=== PATIENT | female | born 1935 | race Caucasian/White ===

== ENCOUNTER 2017-12-21 19:14 | Inpatient (IN) | payer OTHER ==
[~2017-12-21] VITALS: Ht 165.1 cm; Wt 65.8 kg
--- NOTE | 2017-12-21 19:34 | ED GENERAL ADULT ---
History of Present Illness General Chief Complaint: Dyspnea (COPD, CHF, Other) Stated Complaint: BIBA CHILLS, ABNORMAL BREATHING Source: patient, family, EMS Exam Limitations: no limitations Vital Signs & Intake/Output Vital Signs & Intake/Output Vital Signs Date Time Temp Pulse Resp B/P B/P Pulse O2 O2 Flow FiO2 Mean Ox Delivery Rate 12/21 2105 103.0 129 18 113/53 95 Nasal 2.0L Cannula 12/22 2055 103.0 130 18 113/54 96 Nasal 2.0L Cannula 12/21 2017 102.0 12/21 1921 103.0 112 18 136/97 95 Room Air 12/21 1913 Room Air Triage Note: pt coming from home. sudden onset of chills, weakness, decreased appettite. pt tachy 120s, temp 103. hx of peptic ulcers. pt AOX4 Triage Nurses Notes Reviewed? yes HPI: Patient was feeling fine all day and then shortly after dinner she had a sudden onset of feeling chills and shaking. Patient then began to feel weak. Patient denies any coughing. There is no dysuria. Patient had a normal bowel movement this morning. There is no nausea or vomiting. Patient denies any headache or neck pain. Upon arrival to the emergency department patient found to be febrile to 103. Patient does not take any medications. Patient states the only medication her doctor has wanted her to take is an antacid which he prescribed for her last year however she did not feel that she needed it so does not take that. The daughter noticed that last week the patient was passing we'll look like very soft and squishy kidney stones. Patient does have a history of kidney stones but states that she has not been having pain. Past History Travel History Traveled to [place] past 21 day No Medical History Any Pertinent Medical History? see below for history Gastrointestinal: GERD, PEPTIC ULCER Renal: KIDNEY STONES Surgical History Surgical History: non-contributory Psychosocial History What is your primary language Malagasy Tobacco Use: Quit <30 days ago ETOH Use: denies use Illicit Drug Use: denies illicit drug use Family History Hx Contributory? No Review of Systems Review of Systems Constitutional: Reports: see HPI, chills, weakness. EENTM: Reports: no symptoms. Respiratory: Reports: no symptoms. Cardiovascular: Reports: no symptoms. GI: Reports: no symptoms. Genitourinary: Reports: no symptoms. Musculoskeletal: Reports: no symptoms. Skin: Reports: no symptoms. Neurological/Psychological: Reports: no symptoms. Hematologic/Endocrine: Reports: no symptoms. Immunologic/Allergic: Reports: no symptoms. All Other Systems: Reviewed and Negative Physical Exam Physical Exam General Appearance: well developed/nourished, alert, awake, anxious, mild distress Head: atraumatic, normal appearance Eyes: Bilateral: PERRL, EOMI. Ears, Nose, Throat: normal pharynx, normal ENT inspection, hearing grossly normal Neck: normal inspection, supple, full range of motion Respiratory: normal breath sounds, chest non-tender, no respiratory distress, lungs clear Cardiovascular: normal peripheral pulses, tachycardia, NO MURMUR Gastrointestinal: normal bowel sounds, no organomegaly Back: normal inspection, normal range of motion, NO CVA TENDERNESS Extremities: normal inspection, normal capillary refill, normal range of motion, no edema Neurologic/Psych: no motor/sensory deficits, awake, alert, oriented x 3, normal gait, normal mood/affect Skin: intact, normal color, warm/dry Lymphatic: no anterior cervical katie Core Measures ACS in differential dx? No CVA/TIA Diagnosis: No Sepsis Present: Yes Sepsis Focused Exam Completed? No ED Sepsis Exam Date of Focused Sepsis Exam: 12/21/17 Time of Focused Sepsis Exam: 2102 Sepsis Cardiac Exam: Tachycardia Sepsis Resp Exam: CTA Sepsis Cap Refill Exam: <2 Sec Sepsis Peripheral Pulse Exam: Normal Sepsis Peripheral Pulse Location: Radial Sepsis Skin Color Exam: Normal for Ethnicity Skin Temp/Moisture Exam: Hot/Dry Progress Differential Diagnoses I considered the following diagnoses in my evaluation of the patient: [SEPSIS, AMI] Plan of Care: Orders Procedure Date/time Status LACTIC ACID 12/21 2229 Active Admit to inpatient 12/21 2099 Active XRY-PORTABLE CHEST XRAY 12/21 1929 Active Telemetry/Lay Out Technician 12/21 1929 Active CULTURE,URINE 12/21 1929 Active BLOOD CULTURE 12/21 1929 Active URINALYSIS 12/21 1929 Complete TROPONIN LEVEL 12/21 1929 Complete LACTIC ACID 12/21 1929 Complete COMPREHENSIVE METABOLIC PANEL 12/21 1929 Complete CBC WITHOUT DIFFERENTIAL 12/21 1929 Complete EKG 12/21 1925 Active Current Medications Sig/Yuri Start time Last Medication Dose Stop Time Status Admin Metoprolol Tartrate 5 MG ONCE ONE 12/21 2114 UNVr (Lopressor) 12/22 2115 Aspirin 325 MG ONCE ONE 12/21 2099 UNVr (Aspirin) 12/21 2100 Ibuprofen 400 MG ONCE ONE 12/21 2099 UNVr (Motrin) 12/21 2100 Ondansetron HCl 4 MG ONCE ONE 12/21 2014 UNVr 12/21 (Zofran) 12/21 Sodium Chloride 1,000 ML BOLUS ONE 12/21 2014 UNVr 12/21 (Normal Saline 0.9%) 12/21 Acetaminophen 1,000 MG ONCE ONE 12/21 1929 UNVr 12/21 (Ofirmev) 12/21 N/A 1 UNIT (No Carrier) Ceftazidime 1,000 MG ONCE ONE 12/21 1929 UNVr 12/21 (Fortaz) 12/21 Sodium Chloride 2,177.25 ML ONCE ONE 12/21 1929 UNir 12/21 (Normal Saline 0.9%) 12/21 Vancomycin HCl 1,000 MG ONCE ONE 12/21 1929 UNir 12/21 Sodium Chloride 250 ML 12/21 (Normal Saline 0.9%) Laboratory Tests 12/21/17 2000: Urine Color BLDY H, Urine Clarity TURBD H, Urine pH 6.0, Ur Specific [place] 1.025, Urine Protein >=300 H, Urine Ketones TRACE H, Urine Nitrite POS H, Urine Bilirubin NEG@ICTO, Urine Urobilinogen 2.0 H, Ur Leukocyte Esterase LARGE H, Ur Microscopic SEDIMENT EXAMINED, Urine RBC PACKD H, Urine WBC PACKD H, Ur Epithelial Cells FEW, Urine Bacteria MANY H, Micro UA Comment MORE INFO: H, Urine Hemoglobin LARGE H, Urine Glucose NEG 12/21/17 1950: Anion Gap 8, Estimated GFR 60, BUN/Creatinine Ratio 16.7, Glucose 122 H, Lactic Acid 1.3, Calcium 9.1, Total Bilirubin 0.6, AST 40 H, ALT 22, Alkaline Phosphatase 160 H, Troponin I 0.24 *H, Total Protein 6.6, Albumin 2.7 L, Globulin 3.9, Albumin/Globulin Ratio 0.7 L, CBC w Diff NO MAN DIFF REQ, RBC 3.28 L, MCV 80.2 L, MCH 26.7 L, MCHC 33.3, RDW 15.1 H, MPV 9.9, Gran % 84.6 H, Lymphocytes % 6.2 L, Monocytes % 8.7, Eosinophils % 0, Basophils % 0.5, Absolute Granulocytes 12.9 H, Absolute Lymphocytes 0.9 L, Absolute Monocytes 1.3 H, Absolute Eosinophils 0, Absolute Basophils 0.1 Microbiology 12/21 2036 BLOOD: Blood Culture - RECD 12/22 1999 URINE ROUT: Urine Culture - RECD 12/22 1999 BLOOD: Blood Culture - RECD Diagnostic Imaging: Viewed by Me: Radiology Read. Discussed w/RAD: Radiology Read. Pre-Hospital EKG: S TACH WITH LBBB Initial ED EKG: LBBB, S TACH NO OLD TO COMPARE Rhythm Strip: sinus tachycardia Comments: While in the ER patient patient became very nauseous and began to vomit. Discussed with Dr. Elizabeth from cardiology, patient will receive 5 mg of IV Lopressor for the continued tachycardia and the positive troponin. Departure Departure Disposition: STILL A PATIENT Condition: Guarded Clinical Impression Primary Impression: Sepsis Secondary Impressions: Elevated troponin, UTI (urinary tract infection) Referrals: Daniel Haddad MD (PCP/Family) Departure Forms: Customer Survey General Discharge Information Admission Note Spoke With: Ras Hurd MD Documentation of Exam: Documentation of any treatments & extenuating circumstances including Concerns Regarding Discharge (functional status, medication knowledge or non-compliance, living conditions, etc.) that warrant an admission rather than observation: [ICU ADMISSION, CARDIOLOGY CONSULT, IV ABX, AGGRESSIVE HYDRATION] Critical Care Note Critical Care Note Critical Care Time: mins: (90 MIN)
[2017-12-21 20:14] LABS: ABSOLUTE BASOPHIL COUNT 0.1 /CUMM (0.0-0.2); ABSOLUTE EOSINOPHIL COUNT 0 /CUMM (0.0-0.7); ABSOLUTE GRANULOCYTE CT 12.9 /CUMM (1.4-6.5); ABSOLUTE LYMPH COUNT 0.9 /CUMM (1.2-3.4); ABSOLUTE MONOCYTE COUNT 1.3 /CUMM (0.10-0.60); BASOPHIL % 0.5 % (0.0-2.0); EOSINOPHIL % 0 % (0-5); HEMATOCRIT 26.3 % (37-47); MEAN CORPUSCULAR HGB 26.7 PG (27.0-31.0); MEAN CORPUSCULAR HGB CONC 33.3 G/DL (33.0-37.0); MEAN CORPUSCULAR VOLUME 80.2 FL (81.0-99.0); MEAN PLATELET VOLUME 9.9 FL (7.4-10.4); PLATELET COUNT 512 /CUMM (130-400); RBC DISTRIBUTION WIDTH 15.1 % (11.5-14.5); RED BLOOD CELL CT 3.28 /CUMM (4.20-5.40); WHITE BLOOD CELL COUNT 15.2 /CUMM (4.8-10.8)
[2017-12-21 20:15] LABS: GRANULOCYTE % 84.6 % (42.2-75.2)
--- NOTE | 2017-12-21 21:14 | History & Physical ---
[place] [facility] 12/21/172113: General Information and HPI MD Statement: I have seen and personally examined DIANE GARCIA and documented this H&P. The patient is a 82 year old F who presented with a patient stated chief complaint of chills. Source of Information: patient, family Exam Limitations: no limitations History of Present Illness: 82-year-old very pleasant lady with no significant past medical hx other than a remote history of cholelithiasis status post cholecystectomy, and ovarian cyst( ?), presented to [place] ED for evaluation of sudden onset of chills and shivering that started this evening. She denies any recent URI, cough/sob, headache/neck rigidity, abdominal pain,nausea/vomiting, dysuria or diarrhea. No sick contacts or recent travel. She does however states that in the past few days, her urine has looked slightly different. Family members who were at bedside also state that the patient has not been herself for the past few days, with noticeable fatigue. She endorses a vague remote history of "kidney stones" and UTIs. [facility] records indicate an E coli UTI in 2013. Other associated symptoms include an unintentional 50 pound weight loss within 1 year which is also accompanied by decreased appetite. She denies having had any colonoscopy in her lifetime. Review of system is negative for any chest pain, palpitation, shortness of breath, dizziness,orthopnea, lower extremity edema, focal neurological deficits, or muscle aches. At baseline, she reports that she is independent with activities of daily living and other than antacids for heartburn, she does not have any medical condition or take any medication. In 2017, she had an echocardiogram (she does not know why it was ordered) with the results showing a normal EF with no wall motion abnormalities or significant valvular pathologies. Allergies/Medications Allergies: Coded Allergies: No Known Allergies (12/21/17) Inpatient Sepsis Exam Sepsis Cardiac Exam: Tachycardia Sepsis Resp Exam: CTA Sepsis Cap Refill Exam: <2 Sec Sepsis Peripheral Pulse Exam: Normal Sepsis Peripheral Pulse Location: Radial Sepsis Skin Color Exam: Normal for Ethnicity Skin Temp/Moisture Exam: Hot/Dry Past History Travel History Traveled to [place] past 21 day No Medical History Gastrointestinal: GERD, PEPTIC ULCER Renal: KIDNEY STONES Surgical History Surgical History: non-contributory Past Family/Social History Psychosocial History ETOH Use: denies use Illicit Drug Use: denies illicit drug use Review of Systems Review of Systems Constitutional: Reports: see HPI. EENTM: Reports: no symptoms. Cardiovascular: Reports: no symptoms. Respiratory: Reports: no symptoms. GI: Reports: no symptoms. Genitourinary: Reports: discharge. Musculoskeletal: Reports: no symptoms. Skin: Reports: no symptoms. Neurological/Psychological: Reports: no symptoms. Hematologic/Endocrine: Reports: no symptoms. Immunologic/Allergic: Reports: no symptoms. All Other Systems: Reviewed and Negative Exam & Diagnostic Data Last 24 Hrs of Vital Signs/I&O Vital Signs Date Time Temp Pulse Resp B/P B/P Pulse O2 O2 Flow FiO2 Mean Ox Delivery Rate 12/21 2318 Nasal 2.0L Cannula 12/21 2304 100.0 90 15 80/46 97 Nasal 2.0L Cannula 12/21 2252 99.9 89 15 81/49 99 Nasal 2.0L Cannula 12/217 89 18 80/403 96 Nasal 2.0L Cannula / 2202 94 18 80/41 97 Nasal 2.0L Cannula 12/21 2200 90 18 83/46 97 Nasal 2.0L Cannula / 2155 78/42 / 2149 91 18 80/40 97 Nasal 2.0L Cannula / 2148 101.4 92 77/40 94 Nasal 2.0L Cannula / 2140 89/49 /02 2136 86/40 / 2135 95 15 88/53 94 Nasal 2.0L Cannula 12/21 2122 108 112/56 /2105 103.0 129 18 113/53 95 Nasal 2.0L Cannula 12/22 2055 103.0 130 18 113/54 96 Nasal 2.0L Cannula 12/21 2029 103.0 /2017 102.0 / 1922 103.0 112 18 136/97 95 Room Air 12/21 1914 Room Air Physical Exam General Appearance Alert, Oriented X3, Cooperative, No Acute Distress Skin No Significant Lesion, chow angiomas noted on back area Skin Temp/Moisture Exam: Hot/Dry Sepsis Skin Exam (color): Normal for Ethnicity HEENT Atraumatic, PERRLA, slightly dry oral mucosa Neck Supple, No JVD Lymphatic Cervical nl Cardiovascular Regular Rate, Normal S1, Normal S2 Lungs Clear to Auscultation, Normal Air Movement Abdomen Normal Bowel Sounds, Soft, No Tenderness Neurological Normal Speech, Strength at 5/5 X4 Ext, Sensation Intact Extremities No Clubbing, No Cyanosis, No Edema, Normal Pulses Vascular Pulses Symmetrical Sepsis Peripheral Pulse Location: Radial Sepsis Peripheral Pulse Exam: Normal Sepsis Cap Refill Exam: <2 Sec Last 24 Hrs of Labs/Ovidio: Laboratory Tests 12/21/17 2258: Lactic Acid 2.8 H 12/21/171999: Urine Color BLDY H, Urine Clarity TURBD H, Urine pH 6.0, Ur Specific [place] 1.025, Urine Protein >=300 H, Urine Ketones TRACE H, Urine Nitrite POS H, Urine Bilirubin NEG@ICTO, Urine Urobilinogen 2.0 H, Ur Leukocyte Esterase LARGE H, Ur Microscopic SEDIMENT EXAMINED, Urine RBC PACKD H, Urine WBC PACKD H, Ur Epithelial Cells FEW, Urine Bacteria MANY H, Micro UA Comment MORE INFO: H, Urine Hemoglobin LARGE H, Urine Glucose NEG 12/21/171999: Urine Osmolality 457, Ur Random Creatinine 99.4, Ur Random Sodium 54, Ur Random Potassium 70.5, Fraction Sodium Excret 0.4 12/21/17 1950: Anion Gap 8, Estimated GFR 60, BUN/Creatinine Ratio 16.7, Glucose 122 H, Lactic Acid 1.3, Calcium 9.1, Iron 43, TIBC 193 L, Ferritin 250.0, Total Bilirubin 0.6 , AST 40 H, ALT 22, Alkaline Phosphatase 160 H, Troponin I 0.24 *H, Total Protein 6.6, Albumin 2.7 L, Globulin 3.9, Albumin/Globulin Ratio 0.7 L, CBC w Diff NO MAN DIFF REQ, RBC 3.28 L, MCV 80.2 L, MCH 26.7 L, MCHC 33.3, RDW 15.1 H, MPV 9.9, Gran % 84.6 H, Lymphocytes % 6.2 L, Monocytes % 8.7, Eosinophils % 0, Basophils % 0.5, Absolute Granulocytes 12.9 H, Absolute Lymphocytes 0.9 L , Absolute Monocytes 1.3 H, Absolute Eosinophils 0, Absolute Basophils 0.1 Microbiology 12/21 2036 BLOOD: Blood Culture - RECD 12/22 1999 URINE ROUT: Urine Culture - RECD 12/22 1999 BLOOD: Blood Culture - RECD Diagnostic Data EKG Results RBB CXR Results XAM TYPE: RAD - XRY-PORTABLE CHEST XRAY EXAMINATION: XR PORTABLE CHEST CLINICAL INFORMATION: Fever. COMPARISON: CT chest 02/10/2017 TECHNIQUE: Portable frontal view of the chest was obtained. FINDINGS: The lungs are well-expanded and clear of acute pneumonic process. Heart size and pulmonary vascularity is normal. No gross bony abnormality seen. IMPRESSION: Unremarkable chest exam. Assessment/Plan Assessment: 82-year-old gentleman with no known significant past medical history presents with 1 day onset of chills and malaise with a clinical picture consistent with sepsis of urological origin. Patient also has positive troponins without any chest pain or ischemic EKG changes. Impression * Sepsis of urological origin as evident by a temperature of 103, heart rate of 129, leukocytosis and a positive urinalysis suggestive of infection. Even though patient's blood pressure drop precipitously with systolic readings of 80s, this is not severe sepsis but rather iatrogenic induced hypotension due to the metoprolol 5mg IV administered. The normal lactate levels, normal creatinine and urine output provides additional clinical evidence of the absence of severe sepsis, * Elevated troponins. This is Type 2 [place] most likely secondary to supply demand mismatch in the context of sepsis and anemia. Patient does not present with any chest pain or dynamic ischemic EKG changes and therefore ACS is very unlikely. The elevated troponins albeit mild, in an 82 year old lady is suggestive of ischemia from underlying coronary artery disease which can be risk stratified with with a stress test if needed. * Hypotension. Iatrogenic 2/2 to Metoprolol IV * Hyperkalemia * Hyponatremia. * Anemia. Unable to determine whether it's acute as last H&H was in 2010. The MCV of 81 is indicative of microcytic anemia. Given the age of 82 and reported significant weight loss, CRC is of high probability. * Thrombocytosis. Possible secodary to sepsis. Plan Admit to ICU for close monitoring Aggressive IV fluids s/p ceftaz and vanc. No recent urologic instrumentation to suggest continued coverage need for MRSA. Will start Ceftriaxone 1 g daily for UTI to cover for the most common gram negative rods pathogen Will trend troponins and EKG 2 Echocardiogram tomorrow am Follow-up on urine and blood cultures Obtain urine lytes to assess the hyponatremia. Obtain iron studies CBC tomorrow morning to trend leukocytosis DVT:Enoxaparin Code status: DNRI/DNI As Ranked By This Provider Problem List: 1. Sepsis 2. UTI (urinary tract infection) 3. Elevated troponin Core Measures/Misc (03/08) Acute Coronary Syndrome ACS Diagnosis: No Congestive Heart Failure Congestive Heart Failure Diagnosis No Cerebrovascular Accident CVA/TIA Diagnosis: No VTE (View Protocol) VTE Risk Factors Acute Medical Illness No Mechanical VTE Prophylaxis d/t N/A MechProphylax Ordered No VTE Pharm Prophylaxis d/t NA PharmProphylax ordered Sepsis (View protocol) Sepsis Present: Yes If YES complete Sepsis Event Note If YES complete Sepsis Event Note Ras Hurd MD 12/21/17 2305: Core Measures/Misc (03/08) Sepsis (View protocol) If YES complete Sepsis Event Note If YES complete Sepsis Event Note Attending MD Review Statement Attending Statement Attending MD Statement: examined this patient, discuss w/resident/PA/OBJECTIVE C DEVELOPER, agreed w/resident/PA/OBJECTIVE C DEVELOPER, reviewed EMR data (avail) Attending Assessment/Plan: 82F PMH GERD, nephrolithiasis presenting with a several hour history of fever, chills, and fatigue. Was fine up until this evening, then symptoms started abruptly. Denies headache, stiff neck, sore throat, photophobia, chest pain, palpitations, SOB, cough, abdominal pain, diarrhea, dysuria. Febrile 103 on arrival, sinus tach 150's, normal BP on arrival. Labs show WBC 15, normal renal function, microcytic anemia, urinalysis consistent with UTI. Given Metoprolol 5mg IV in ED for tachycardia which dropped BP to 84/50, HR improved, patient remains asymptomatic aside from fatigue. Troponin elevated to 0.24, EKG sinus tach without ST/T changes. BP 78/48 with HR 75 and sinus at 4am, patient alert, talking, only complains of a sticking sensation in the back of her throat, but otherwise does not appear septic clinically, troponin now 4.65, EKG shows LBBB (unchanged), cardiology consulted, no heparin drip, will continue to trend troponin. Blood cultures positive for gram negative rods. 1. Severe sepsis secondary to UTI 2. Sinus tachycardia 3. Gram negative bacteremia 4. Type 2 myocardial infarction Plan - Admit to ICU - Continue IV hydration, if remains hypotensive, will start peripheral Levophed at very low dose. If change in clinical status, or worsening hemodynamics, will place central line and start Levophed. - Serial EKG and troponin - Echocardiogram - Continue Ceftazidime - Urine and blood cultures - Cardiology consult - IV hydration - No further b-blockers - DVT PPx
--- NOTE | 2017-12-21 21:22 | RADIOLOGY REPORT ---
EXAMINATION: XR PORTABLE CHEST CLINICAL INFORMATION: Fever. COMPARISON: CT chest 02/10/2017 TECHNIQUE: Portable frontal view of the chest was obtained. FINDINGS: The lungs are well-expanded and clear of acute pneumonic process. Heart size and pulmonary vascularity is normal. No gross bony abnormality seen. IMPRESSION: Unremarkable chest exam.
[2017-12-22 00:19] LABS: ABSOLUTE BASOPHIL COUNT 0 /CUMM (0.0-0.2); ABSOLUTE EOSINOPHIL COUNT 0 /CUMM (0.0-0.7); ABSOLUTE GRANULOCYTE CT 12.2 /CUMM (1.4-6.5); ABSOLUTE LYMPH COUNT 0.5 /CUMM (1.2-3.4); ABSOLUTE MONOCYTE COUNT 0.2 /CUMM (0.10-0.60); BASOPHIL % 0 % (0.0-2.0); EOSINOPHIL % 0 % (0-5); GRANULOCYTE % 94.7 % (42.2-75.2); HEMATOCRIT 22.5 % (37-47); MEAN CORPUSCULAR HGB 26.4 PG (27.0-31.0); MEAN CORPUSCULAR HGB CONC 32.9 G/DL (33.0-37.0); MEAN CORPUSCULAR VOLUME 80.2 FL (81.0-99.0); MEAN PLATELET VOLUME 9.7 FL (7.4-10.4); PLATELET COUNT 385 /CUMM (130-400); RBC DISTRIBUTION WIDTH 14.5 % (11.5-14.5); WHITE BLOOD CELL COUNT 12.9 /CUMM (4.8-10.8)
[2017-12-22 01:00] VITALS: BP 70/40
--- NOTE | 2017-12-22 01:53 | Admission Certification ---
Admission Certification Certification Statement - As attending physician, I certify that at the time of - admission, based on clinical presentation, severity of - symptoms, need for further diagnostic testing and - therapeutic interventions, and risk of adverse outcomes - without in-hospital treatment, in my clinical assessment, - this patient requires an acute hospital stay for a minimum - of two nights or longer. I have also considered psychsocial - factors such as support system, advanced age, financial - issues, cognitive issues, and failed out-patient treatments, - past re-admission history, safety of patient, and lack of - compliance as applicable. Specific rationale supporting this admission is: Sepsis secondary to UTI with positive troponin
--- NOTE | 2017-12-22 04:18 | Event Note ---
Event Note Event Note: It was noted that the troponin value went up to 4.76 from 0.16. EKG revealed incomplete left bundle branch block, and nonspecific ST changes in anterior leads. She was completely asymptomatic at the time. Blood pressure continued to be on the lower side systolic 70s, map around 60s. Given her sepsis, this change was most likely attributed to type II ME. Discussed with the food editor, if heparin needs to be initiated; and deferred the decision for later since it appeared to be type II ME in her case. Discussed with the attending physician consolidation accountant, and in view of her low blood pressure and decreased urine output; she was given normal saline 1 L bolus. Blood pressure improved to 87/50. Heart rate remained in the range of 80s-90s. It was also reported that she grew gram-negative rods in blood, and antibiotics have been changed to ceftazidime. She was alert and oriented, and appeared completely normal at this time. Lungs clear. Urine output in the range of 10- 40 mL an hour. Plan was to start pressors peripherally, if needed. Once she is more clinically stable, she should get CAT scan abdomen and pelvis with contrast to rule out any intra-abdominal source of infection.
--- NOTE | 2017-12-22 07:38 | Cons- CRCU ---
Jeff King 12/22/17 0715: General Information and HPI Consulting Request Date of Consult: 12/22/17 Requested By: Dr. Hurd Reason for Consult: Pt. acutely ill Source of Information: patient, old records Exam Limitations: no limitations History of Present Illness: 82y year old F with history of kidney stones, presented to ED c/o sudden onset of chills that started the evening of 12/21. Patient states she was feeling normal that day until the evening, when she started shivering. Pt and her daughter have noted her urine has looked different over the last few days, with the appeareance of soft stones. She denies any SOB/cough, headache, abdominal pain, dysuria, recent URI, headache/neck rigidity, N/V/D. Pt denies recent travel or sick contacts. Pt recalls two episodes of kidney stones in the past, unclear on the date, described as difficulty initiating urination, with rapid voiding after the passing of "something" the size of a rice grain, but notes she experienced no pain during those episodes. Family members have also noted increased fatigue and unintentional 50 pounds weight loss with decreased appetite during the past year. Pt refers it started last january as decreased appetite, then transitioned into weakness and fatigue. As per pt, she had workup done with no real answer to her symptoms, but denies EGD/Colonoscopy during this period. She has been unable to gain weight since then. At baseline, pt reports that she is independent with ADLs and only reports taking antacids for heartburn. Of relevance, medical records show a E. coli UTI in 2013, and in in 2017, she had an echocardiogram with the results showing a normal EF with no wall motion abnormalities or significant valvular pathologies. Allergies/Medications Allergies: Coded Allergies: No Known Allergies (12/21/17) Review of Systems Review of Systems Constitutional: Reports: unexplained weight loss. EENTM: Reports: no symptoms. Cardiovascular: Reports: no symptoms. Respiratory: Reports: no symptoms. GI: Reports: no symptoms. Genitourinary: Reports: no symptoms. Musculoskeletal: Reports: no symptoms. Skin: Reports: no symptoms. Past History Travel History Traveled to [place] past 21 day No Medical History Gastrointestinal: GERD, PEPTIC ULCER Renal: KIDNEY STONES Surgical History Surgical History: cholecystectomy, partial oophorectomy Psychosocial History Where Do You Live? Home Smoking Status: Unknown If Ever Smoked ETOH Use: denies use Illicit Drug Use: denies illicit drug use Exam & Diagnostic Data Last 24 Hrs of Vital Signs/I&O Laboratory Tests 12/22 12/22 12/22 0840 0630 0220 Chemistry Lactic Acid (0.7 - 2.1 mmol/L) 1.5 2.4 H Troponin I Pending Coagulation PT Pending INR Pending Hematology CBC w Diff MAN DIFF ORDERED WBC (4.8 - 10.8 /CUMM) Pending RBC (4.20 - 5.40 /CUMM) Pending Hgb (12.0 - 16.0 G/DL) Pending Hct (37 - 47 %) Pending MCV (81.0 - 99.0 FL) Pending MCH (27.0 - 31.0 PG) Pending MCHC (33.0 - 37.0 G/DL) Pending RDW (11.5 - 14.5 %) Pending Plt Count (130 - 400 /CUMM) Pending MPV (7.4 - 10.4 FL) Pending Gran % (42.2 - 75.2 %) Pending Lymphocytes % (20.5 - 51.1 %) Pending Monocytes % (1.7 - 9.3 %) Pending Eosinophils % (0 - 5 %) Pending Basophils % (0.0 - 2.0 %) Pending Absolute Granulocytes (1.4 - 6.5 /CUMM) Pending Segmented Neutrophils (42.2 - 75.2 %) Pending Absolute Lymphocytes (1.2 - 3.4 /CUMM) Pending Absolute Monocytes (0.10 - 0.60 /CUMM) Pending Absolute Eosinophils (0.0 - 0.7 /CUMM) Pending Absolute Basophils (0.0 - 0.2 /CUMM) Pending 12/22 12/22 12/21 0220 0005 2258 Chemistry Sodium (137 - 145 mmol/L) 138 Potassium (3.5 - 5.1 mmol/L) 3.9 Chloride (98 - 107 mmol/L) 109 H Carbon Dioxide (22 - 30 mmol/L) 18 L Anion Gap (5 - 16) 11 BUN (7 - 17 mg/dL) 15 Creatinine (0.5 - 1.0 mg/dL) 1.2 H Estimated GFR (>60 ml/min) 43 L BUN/Creatinine Ratio (7 - 25 %) 12.5 Lactic Acid (0.7 - 2.1 mmol/L) 2.8 H Troponin I (< 0.11 ng/ml) 4.76 *H Hematology CBC w Diff MAN DIFF ORDERED WBC (4.8 - 10.8 /CUMM) 12.9 H RBC (4.20 - 5.40 /CUMM) 2.80 L Hgb (12.0 - 16.0 G/DL) 7.4 *L Hct (37 - 47 %) 22.5 L MCV (81.0 - 99.0 FL) 80.2 L MCH (27.0 - 31.0 PG) 26.4 L MCHC (33.0 - 37.0 G/DL) 32.9 L RDW (11.5 - 14.5 %) 14.5 Plt Count (130 - 400 /CUMM) 385 MPV (7.4 - 10.4 FL) 9.7 Gran % (42.2 - 75.2 %) 94.7 H Lymphocytes % (20.5 - 51.1 %) 4.0 L Monocytes % (1.7 - 9.3 %) 1.3 L Eosinophils % (0 - 5 %) 0 Basophils % (0.0 - 2.0 %) 0 Absolute Granulocytes (1.4 - 6.5 /CUMM) 12.2 H Segmented Neutrophils (42.2 - 75.2 %) 89 H Band Neutrophils (0.0 - 5.0 %) 9 H Absolute Lymphocytes (1.2 - 3.4 /CUMM) 0.5 L Lymphocytes (20.5 - 51.1 %) 1 L Monocytes (1.7 - 9.3 %) 1 L Absolute Monocytes (0.10 - 0.60 /CUMM) 0.2 Absolute Eosinophils (0.0 - 0.7 /CUMM) 0 Absolute Basophils (0.0 - 0.2 /CUMM) 0 Platelet Estimate (ADEQUATE) ADEQUATE Polychromasia 1+ Hypochromic-Microcytic 1+ Poikilocytosis 1+ Anisocytosis 1+ Microcytic Cells 1+ Ovalocytes 1+ Other Body Source Fld Total RBCs Counted (%) 100 12/21 Urines Urine Color (YEL,AMB,STR) BLDY H Urine Clarity (CLEAR) TURBD H Urine pH (5.0 - 8.0) 6.0 Ur Specific [place] (1.001 - 1.035) 1.025 Urine Protein (NEG,<30 MG/DL) >=300 H Urine Ketones (NEG) TRACE H Urine Nitrite (NEG) POS H Urine Bilirubin (NEG) NEG@ICTO Urine Urobilinogen (0.1 - 1.0 EU/dl) 2.0 H Ur Leukocyte Esterase (NEG) LARGE H Ur Microscopic SEDIMENT EXAMINED Urine RBC (0 - 5 /HPF) PACKD H Urine WBC (0 - 2 /HPF) PACKD H Ur Epithelial Cells (NONE,FEW) FEW Urine Bacteria (NEG/NONE) MANY H Micro UA Comment MORE INFO: H Urine Hemoglobin (NEG) LARGE H Urine Osmolality (300 - 1000 MOSM/KG) 457 Ur Random Creatinine (mg/dL) 99.4 Ur Random Sodium (30 - 90 mmol/L) 54 Ur Random Potassium (mmol/L) 70.5 Fraction Sodium Excret (<1% %) 0.4 Urine Glucose (N MG/DL) NEG 12/21 1949 Chemistry Sodium (137 - 145 mmol/L) 132 L Potassium (3.5 - 5.1 mmol/L) 5.4 H Chloride (98 - 107 mmol/L) 98 Carbon Dioxide (22 - 30 mmol/L) 26 Anion Gap (5 - 16) 8 BUN (7 - 17 mg/dL) 15 Creatinine (0.5 - 1.0 mg/dL) 0.9 Estimated GFR (>60 ml/min) 60 BUN/Creatinine Ratio (7 - 25 %) 16.7 Glucose (65 - 99 mg/dL) 122 H Lactic Acid (0.7 - 2.1 mmol/L) 1.3 Calcium (8.4 - 10.2 mg/dL) 9.1 Iron (37 - 170 ug/dL) 43 TIBC (265 - 497 ug/dL) 193 L Ferritin (11.1 - 264 ng/mL) 250.0 Total Bilirubin (0.2 - 1.3 mg/dL) 0.6 AST (14 - 36 U/L) 40 H ALT (9 - 52 U/L) 22 Alkaline Phosphatase (<127 U/L) 160 H Troponin I (< 0.11 ng/ml) 0.24 *H Total Protein (6.3 - 8.2 g/dL) 6.6 Albumin (3.5 - 5.0 g/dL) 2.7 L Globulin (1.9 - 4.2 gm/dL) 3.9 Albumin/Globulin Ratio (1.1 - 2.2 %) 0.7 L Hematology CBC w Diff NO MAN DIFF REQ WBC (4.8 - 10.8 /CUMM) 15.2 H RBC (4.20 - 5.40 /CUMM) 3.28 L Hgb (12.0 - 16.0 G/DL) 8.7 L Hct (37 - 47 %) 26.3 L MCV (81.0 - 99.0 FL) 80.2 L MCH (27.0 - 31.0 PG) 26.7 L MCHC (33.0 - 37.0 G/DL) 33.3 RDW (11.5 - 14.5 %) 15.1 H Plt Count (130 - 400 /CUMM) 512 H MPV (7.4 - 10.4 FL) 9.9 Gran % (42.2 - 75.2 %) 84.6 H Lymphocytes % (20.5 - 51.1 %) 6.2 L Monocytes % (1.7 - 9.3 %) 8.7 Eosinophils % (0 - 5 %) 0 Basophils % (0.0 - 2.0 %) 0.5 Absolute Granulocytes (1.4 - 6.5 /CUMM) 12.9 H Absolute Lymphocytes (1.2 - 3.4 /CUMM) 0.9 L Absolute Monocytes (0.10 - 0.60 /CUMM) 1.3 H Absolute Eosinophils (0.0 - 0.7 /CUMM) 0 Absolute Basophils (0.0 - 0.2 /CUMM) 0.1 Microbiology Date/Time Procedure - Status Source Growth 12/22 114 Surveillance Culture - RECD UPPER RESP 12/22 114 Surveillance Culture - RECD GI 12/21 2036 Blood Culture - RECD BLOOD 12/22 1999 Urine Culture - RECD URINE ROUT 12/22 1999 Blood Culture - RES BLOOD GRAM NEGATIVE RODS Vital Signs Date Time Temp Pulse Resp B/P B/P Pulse O2 O2 Flow FiO2 Mean Ox Delivery Rate 12/22 0400 96 Nasal 2.0L Cannula 12/22 0200 100 Nasal 2.0L Cannula 12/22 010 99.3 12/22 0100 99.3 12/22 0100 97.7 78 24 70/40 100 Nasal 2.0L Cannula 12/22 0012 100.0 90 16 77/47 97 Nasal 2.0L Cannula 12/21 2318 Nasal 2.0L Cannula 12/21 2304 100.0 90 15 80/46 97 Nasal 2.0L Cannula / 2252 99.9 89 15 81/49 99 Nasal 2.0L Cannula 12/21 2207 89 18 80/403 96 Nasal 2.0L Cannula 12/21 2202 94 18 80/41 97 Nasal 2.0L Cannula / 2200 90 18 83/46 97 Nasal 2.0L Cannula 12/21 2155 78/42 / 2149 91 18 80/40 97 Nasal 2.0L Cannula 12/21 2148 101.4 92 77/40 94 Nasal 2.0L Cannula 12/21 2140 89/49 /02 2136 86/40 / 2135 95 15 88/53 94 Nasal 2.0L Cannula 12/21 2122 108 112/56 / 2106 103.0 129 18 113/53 95 Nasal 2.0L Cannula 12/216 103.0 130 18 113/54 96 Nasal 2.0L Cannula 12/21 2030 103.0 / 2018 102.0 07/02 1922 103.0 112 18 136/97 95 Room Air 12/21 1914 Room Air Intake & Output 12/22 1600 07/03 0800 07 0000 Intake Total 7859 Output Total 178 Balance 7681 Intake, IV 7839 Intake, Oral 20 Output, Urine 178 Patient 142 lb 160 lb Weight Weight Bed scale Estimated Measurement Method Physical Exam General Appearance: no apparent distress, alert, awake, thin Head: atraumatic, normal appearance Eyes: Bilateral: normal appearance, pale conjunctivae. Neck: normal inspection, supple Respiratory: normal breath sounds, chest non-tender, no respiratory distress, lungs clear Cardiovascular: regular rate/rhythm Gastrointestinal: normal bowel sounds, soft, non-tender Extremities: normal inspection Skin: normal color, warm/dry Last 48 Hrs of Labs/Ovidio: Laboratory Tests 12/22/17 0840: Troponin I Pending, PT Pending, INR Pending, CBC w Diff Pending, WBC Pending, RBC Pending, Hgb Pending, Hct Pending, MCV Pending, MCH Pending, MCHC Pending, RDW Pending, Plt Count Pending, MPV Pending 12/22/17 0630: Lactic Acid 1.5 12/22/17 0220: Lactic Acid 2.4 H 12/22/17 0220: Anion Gap 11, Estimated GFR 43 L, BUN/Creatinine Ratio 12.5, Troponin I 4.76 *H 12/22/17 0005: CBC w Diff MAN DIFF ORDERED, RBC 2.80 L, MCV 80.2 L, MCH 26.4 L, MCHC 32.9 L , RDW 14.5, MPV 9.7, Gran % 94.7 H, Lymphocytes % 4.0 L, Monocytes % 1.3 L, Eosinophils % 0, Basophils % 0, Absolute Granulocytes 12.2 H, Segmented Neutrophils 89 H, Band Neutrophils 9 H, Absolute Lymphocytes 0.5 L, Lymphocytes 1 L, Monocytes 1 L, Absolute Monocytes 0.2, Absolute Eosinophils 0 , Absolute Basophils 0, Platelet Estimate ADEQUATE, Polychromasia 1+, Hypochromic-Microcytic 1+, Poikilocytosis 1+, Anisocytosis 1+, Microcytic Cells 1+, Ovalocytes 1+, Fld Total RBCs Counted 100 12/21/17 2258: Lactic Acid 2.8 H 12/21/17 2000: Urine Color BLDY H, Urine Clarity TURBD H, Urine pH 6.0, Ur Specific [place] 1.025, Urine Protein >=300 H, Urine Ketones TRACE H, Urine Nitrite POS H, Urine Bilirubin NEG@ICTO, Urine Urobilinogen 2.0 H, Ur Leukocyte Esterase LARGE H, Ur Microscopic SEDIMENT EXAMINED, Urine RBC PACKD H, Urine WBC PACKD H, Ur Epithelial Cells FEW, Urine Bacteria MANY H, Micro UA Comment MORE INFO: H, Urine Hemoglobin LARGE H, Urine Glucose NEG 12/21/171999: Urine Osmolality 457, Ur Random Creatinine 99.4, Ur Random Sodium 54, Ur Random Potassium 70.5, Fraction Sodium Excret 0.4 12/21/17 1950: Anion Gap 8, Estimated GFR 60, BUN/Creatinine Ratio 16.7, Glucose 122 H, Lactic Acid 1.3, Calcium 9.1, Iron 43, TIBC 193 L, Ferritin 250.0, Total Bilirubin 0.6 , AST 40 H, ALT 22, Alkaline Phosphatase 160 H, Troponin I 0.24 *H, Total Protein 6.6, Albumin 2.7 L, Globulin 3.9, Albumin/Globulin Ratio 0.7 L, CBC w Diff NO MAN DIFF REQ, RBC 3.28 L, MCV 80.2 L, MCH 26.7 L, MCHC 33.3, RDW 15.1 H, MPV 9.9, Gran % 84.6 H, Lymphocytes % 6.2 L, Monocytes % 8.7, Eosinophils % 0, Basophils % 0.5, Absolute Granulocytes 12.9 H, Absolute Lymphocytes 0.9 L , Absolute Monocytes 1.3 H, Absolute Eosinophils 0, Absolute Basophils 0.1 Diagnostic Data Other Results EXAMINATION: CT ABDOMEN AND PELVIS WITH CONTRAST CLINICAL INFORMATION: Sepsis of urological origin. Evaluate for intra-abdominal abscess, perinephric abscess. COMPARISON: None TECHNIQUE: Multidetector volumetric imaging was performed of the abdomen and pelvis following IV administration of 95 mL of Optiray 320 intravenous contrast. Sagittal and coronal reformatted images were obtained on the technologist's workstation. DLP: 291 mGy-cm FINDINGS: LUNG BASES: Small bilateral pleural effusions produce compressive atelectasis of lower lobes. LIVER, GALLBLADDER, AND BILIARY TREE: There is hepatomegaly. Liver is diffusely heterogeneous, likely from hepatic venous congestion. No focal liver lesions are seen. No hepatic abscess. Gallbladder is surgically absent. No intrahepatic or extrahepatic bile duct dilatation. PANCREAS: The pancreatic tail is anterosuperiorly displaced by the left renal mass. No focal pancreatic lesion. SPLEEN: Unremarkable. ADRENAL GLANDS: Unremarkable. KIDNEYS AND URETERS: The right kidney is normal. A large, heterogeneously enhancing, centrally necrotic mass of the [id number] pole of the left kidney, consistent with renal cell carcinoma, measures up to 10.5 cm transverse, 11.6 cm AP and 13.5 cm craniocaudal. The tumor, which is confined to Gerota's fascia, exerts mass effect upon the renal sinus fat. No tumor invasion into the renal vein or into surrounding structures. BLADDER: The bladder is decompressed by a Echevarria catheter. GASTROINTESTINAL TRACT: Stomach is underdistended. Bowel loops are normal in caliber. Pancolonic diverticulosis. However, no focal bowel wall thickening or focal fat stranding to suggest acute diverticulitis. Small amount of ascitic fluid is present within the abdomen. No pneumoperitoneum. ABDOMINAL WALL: Mild edema in subcutaneous tissues of the abdominal wall, flanks, back and thighs. No focal fluid collection. LYMPH NODES: No pathologic sized lymph nodes within the abdomen or pelvis. VASCULAR: Mild atherosclerosis of the abdominal aorta without aneurysm. PELVIC VISCERA: 2 cm calcified uterine leiomyoma. Small amount of free fluid is present in the pelvis. No abscess. OSSEOUS STRUCTURES: Bones appear diffusely osteopenic. L4-L5 facet osteoarthritis and degenerative disc disease with 0.8 cm (approximately 25%) of anterolisthesis of L4 on L5. No aggressive osseous lesions. IMPRESSION: 1. Large, heterogeneously enhancing mass of the [id number] pole the left kidney measuring up to 13.5 cm is consistent with renal cell carcinoma. No evidence of lymphadenopathy or distant metastasis. 2. Anasarca. The heterogeneous hepatic attenuation is likely due to hepatic venous congestion. 3. No evidence of abdominal abscess. 4. Pancolonic diverticulosis without diverticulitis. Assessment/Plan CRCU Impression/Plan: 82 year old F with PMH kidney stones that presented to the ED with complains of sudden onset chills, malaise and fatigue of 1 day duration. Patient is talkative , cooperative, does not look in acute distress. She is hypotensive, with a MAP of 53, blood cultures 2/2 growing gram negative rods likely from urinary origin. Problems: #Urosepsis #Elevated Troponin #L RCC Assesment and Plan VS- BP: 80/40, HR: 71, RR:20, T: 99.3, I/O: 7509/178 Respiratory Patient is breathing comfortably, sat 97% with 2L on nasal cannula. Lungs are CTA B/L, no wheezes, crepitus or rhonchi heard. CXR shows no infiltrates or consolidation, making a PNA unlikely. Infection Pt presentation suggestive of infection. Tmax of 103, WBC 15.2 on admit ->12.9 - >31.6 latest; positive urianalysis indicates an infection of urinary origin. Patient with BP of 80/40, though unclear if it's sepsis-induced hypotension as BP on admit 136/97, dropping to 88/53 after metoprolol was given. However, 6L of fluids have failed to raise the SBP above 90, making the likelihood of sepsis- induced hypotension stronger. Lactic acid trend 1.5 ->2.4, indicating increasing inflammatory burden. Blood cultures 2/2 grown gram negative rods. -Coverage switched from ceftriaxone to ceftazidime IV 1g BID -f/u on cultures -Mantain MAP>65 Cardiac Pt. with elevated troponin on arrival. Trend: 0.24->4.76->3.81. Sharp increase/ decrease in the setting of sepsis might indicate a type II non-ST segment elevation MS supply-demand mismatch. Patient has not complained of chest pain. EKG findings suggestive of LBBB, but in the absence of a baseline EKG, underlying CAD cannot be ruled out. -Cardio consulted -Echo pending Hematological Patient with Hb of 8.7->7.4->7.9 and MCV of 81.3 on the latest am lab. Borderline low MCV and low Hb in this 82 year old F with 50 pound unintentional weight loss is concerning for malignancy. CT abdomen showed a large, centrally necrotic mass of the mid-to lower pole of the left kidney, consistent with renal cell carcinoma, measures up to 10.5 cm transverse, 11.6 cm AP and 13.5 cm craniocaudal. No tumor invasion into the renal vein or into surrounding structures. -Mantain Hb > 8 -Check coag profile Metabolic Hyponatremic on admit 132->138 latest am lab Hyperkalemic on admit 5.4 -> 3.9 latest am lab -Will continue to monitor Alimentary Regular diet Neuro Patient is cooperative and talkative, AAOx3. DNR/DNI Problem List: 1. Sepsis 2. UTI (urinary tract infection) 3. Elevated troponin 4. Renal cell carcinoma Consult Acknowledgment - Thank you for your consult request. Chandrakant Eden MD 12/22/17 0738: Assessment/Plan CRCU Other Findings/Comments: Chandrakant Turner M.D. have examined this patient, reviewed available EMR data, personally reviewed images, discussed with resident/PA/PARKING LOT SPOTTER, discussed management plan with housestaff and nursing staff, discussed managment plan all of healthcare providers, discussed management plan with patient and/or family, agreed with resident/PA/PARKING LOT SPOTTER. The past history and parts of the chart have been autopopulated. Impression 82 year old woman * severe sepsis uti as source * troponinemia likely type 2 MS Plan -2 liters bolus -maintain map of >65 -if necessary will initiate pressors - manual BP now in 90's, mentating well, urinary output increased, will monitor -f/u all cultures -abdominal CT pending -ECHO -cardiology consultation -check coags -repeat hgb, maintain hgb >8 DVT prophylaxis at all times TTS 45 min Consult Acknowledgment - Thank you for your consult request.
[2017-12-22 08:00] VITALS: BP 82/48
[2017-12-22 09:01] LABS: ABSOLUTE BASOPHIL COUNT 0.1 /CUMM (0.0-0.2); ABSOLUTE EOSINOPHIL COUNT 0 /CUMM (0.0-0.7); ABSOLUTE GRANULOCYTE CT 28.5 /CUMM (1.4-6.5); ABSOLUTE LYMPH COUNT 1.9 /CUMM (1.2-3.4); BASOPHIL % 0.5 % (0.0-2.0); EOSINOPHIL % 0 % (0-5); GRANULOCYTE % 90.3 % (42.2-75.2); HEMATOCRIT 24.4 % (37-47); MEAN CORPUSCULAR HGB 26.5 PG (27.0-31.0); MEAN CORPUSCULAR HGB CONC 32.6 G/DL (33.0-37.0); MEAN CORPUSCULAR VOLUME 81.3 FL (81.0-99.0); PLATELET COUNT 354 /CUMM (130-400); RBC DISTRIBUTION WIDTH 15.6 % (11.5-14.5)
[2017-12-22 09:31] LABS: WHITE BLOOD CELL COUNT 31.6 /CUMM (4.8-10.8)
[2017-12-22 09:43] LABS: PT 16.3 SEC (9.4-12.5)
--- NOTE | 2017-12-22 10:32 | Cons- Cardiology ---
General Information and HPI Consulting Request Date of Consult: 12/22/17 Requested By: Ras Hurd MD Reason for Consult: Elevated troponin isoenzyme Source of Information: patient, old records Exam Limitations: no limitations History of Present Illness: The patient is an 82-year-old woman with no significant past medical history. She presented to our hospital with symptoms of severe chills, fever and fatigue. On arrival, she was noted to be septic, as well as hypotensive and tachycardic. Initial and subsequent troponin isoenzymes were positive. The patient states having increased symptoms of chills and fevers, initiating several hours prior to arrival. She states she has been otherwise asymptomatic, and describes performance of approximately 4 metastases of physical activity on a regular basis at home without symptoms (climbing stairs, performing housework) . On arrival, she was found to be febrile with a temperature of 103. From a hemodynamic standpoint, she was hypotensive with blood pressure of 80s, and tachycardic with heart rates of 150s. The patient had other evidence of sepsis including leukocytosis, and an elevated lactic acid level. The first troponin isoenzyme was positive at 0.24, and peaked at 4.76 with a second level. A third level was lower at 3.81. Blood cultures were positive for gram-negative rods. The patient otherwise denied symptoms of chest discomfort during her presentation with the exception of mild epigastric discomfort which was alleviated by belching. Allergies/Medications Allergies: Coded Allergies: No Known Allergies (12/21/17) Current Medications: Current Medications Sig/Yuri Start time Last Medication Dose Route Stop Time Status Admin Acetaminophen 500 MG Q6P PRN 12/21 2300 AC PO Acetaminophen 0 .STK-MED ONE 12/21 1958 DC IV Acetaminophen 1,000 MG ONCE ONE 12/21 1930 DC 12/21 N/A 1 UNIT IV 12/21 1944 2002 Aspirin 325 MG ONCE ONE 12/22 0400 CAN PO 12/22 0401 Aspirin 325 MG ONCE ONE 12/21 2100 DC 12/21 PO 12/21 Aspirin 0 .STK-MED ONE 12/21 2057 DC PO Ceftazidime 1,000 MG BID 12/22 0430 AC 12/22 IV 12/23 0429 0507 Ceftazidime 0 .STK-MED ONE 12/21 2009 DC .ROUTE Ceftazidime 0 .STK-MED ONE 12/22 2007 DC .ROUTE Ceftazidime 1,000 MG ONCE ONE 12/21 1930 DC 12/21 IV 12/21 1931 2043 Ceftriaxone Sodium 1,000 MG DAILY 12/22 0400 DC IV Enoxaparin Sodium 40 MG DAILY 12/22 0900 DC SC Enoxaparin Sodium 40 MG DAILY 12/22 0900 AC 07 SC 0916 Heparin Sodium 25,000 UNIT Q24H 12/22 0400 DC (Porcine) IV Sodium Chloride 500 ML Ibuprofen 400 MG ONCE ONE 12/21 2100 DC 12/21 PO 12/21 210 2030 Ibuprofen 0 .STK-MED ONE 12/21 2057 DC PO Metoprolol Tartrate 0 .STK-MED ONE 12/22 2115 DC IV Metoprolol Tartrate 5 MG ONCE ONE 12/21 211 DC 12/21 IV 12/21 Ondansetron HCl 4 MG ONCE ONE 12/21 2014 DC 12/21 IV 12/21 Ondansetron HCl 0 .STK-MED ONE 12/21 2012 DC .ROUTE Pantoprazole Sodium 40 MG DAILY 12/22 0430 AC 12/22 IV 0430 Promethazine HCl 0 .STK-MED ONE 12/21 2009 DC .ROUTE Sodium Chloride 1,000 ML BOLUS ONE 12/22 0715 DC 12/22 IV 12/22 0814 0744 Sodium Chloride 1,000 ML BOLUS ONE 12/22 0715 DC 12/22 IV 12/22 0814 0941 Sodium Chloride 1,000 ML BOLUS ONE 12/22 0430 DC 12/22 IV 12/22 0529 0415 Sodium Chloride 1,000 ML Q10H 12/21 2300 AC 12/22 IV 0100 Sodium Chloride 1,000 ML BOLUS ONE 12/21 2200 DC 12/21 IV 12/21 2259 2217 Sodium Chloride 1,000 ML BOLUS ONE 12/21 2145 DC 12/21 IV 12/21 2244 2151 Sodium Chloride 1,000 ML BOLUS ONE 12/21 2014 DC / IV 12/21 2114 2044 Sodium Chloride 2,177.25 ML ONCE ONE 12/21 1930 DC 07 IV 12/21 1931 2004 Trimethobenzamide HCl 200 MG ONCE ONE 12/22 0445 DC IM 12/22 0446 Vancomycin HCl 0 .STK-MED ONE 12/21 2008 DC .ROUTE Vancomycin HCl 1,000 MG ONCE ONE 12/21 1930 DC 12/21 Sodium Chloride 250 ML IV 12/21 Review of Systems Review of Systems: The review of systems is negative for chest pains, palpitations nor lightheadedness. The remainder of the 14 point review of systems is noncontributory with the exception of above. Past History Travel History Traveled to [place] past 21 day No Medical History Gastrointestinal: GERD, PEPTIC ULCER Renal: KIDNEY STONES Surgical History Surgical History: cholecystectomy, partial oophorectomy Psychosocial History Where Do You Live? Home Smoking Status: Unknown If Ever Smoked ETOH Use: denies use Illicit Drug Use: denies illicit drug use Exam & Diagnostic Data Vital Signs and I&O Vital Signs Date Time Temp Pulse Resp B/P B/P Pulse O2 O2 Flow FiO2 Mean Ox Delivery Rate 12/22 0400 96 Nasal 2.0L Cannula 12/22 0200 100 Nasal 2.0L Cannula 12/22 0100 99.3 12/22 0100 99.3 12/22 0100 97.7 78 24 70/40 100 Nasal 2.0L Cannula 12/22 0012 100.0 90 16 77/47 97 Nasal 2.0L Cannula 12/21 2318 Nasal 2.0L Cannula 12/21 2304 100.0 90 15 80/46 97 Nasal 2.0L Cannula 12/21 2252 99.9 89 15 81/49 99 Nasal 2.0L Cannula /7 89 18 80/403 96 Nasal 2.0L Cannula /2 94 18 80/41 97 Nasal 2.0L Cannula /0 90 18 83/46 97 Nasal 2.0L Cannula 12/215 78/42 /2148 91 18 80/40 97 Nasal 2.0L Cannula 12/22 2147 101.4 92 77/40 94 Nasal 2.0L Cannula 12/210 89/49 /2135 86/40 /2134 95 15 88/53 94 Nasal 2.0L Cannula 12/21 2121 108 112/56 /2105 103.0 129 18 113/53 95 Nasal 2.0L Cannula 12/22 2055 103.0 130 18 113/54 96 Nasal 2.0L Cannula 12/21 2029 103.0 12/21 2017 102.0 07/02 1922 103.0 112 18 136/97 95 Room Air 12/21 1914 Room Air Intake & Output 12/22 0812/22 0000 12/21 1600 12/21 0812/21 0000 Intake Total 7859 Output Total 178 Balance 7681 Intake, IV 7839 Intake, Oral 20 Output, Urine 178 Patient 142 lb 160 lb Weight Weight Bed scale Estimated Measurement Method Physical Exam: General: Nontoxic, no apparent distress. HEENT: Sclera and conjunctiva within normal limits, without xanthelasmas. Neck: Carotids 2+ without bruits. Respiratory: Scattered rhonchi, air movement is good, without accessory respiratory muscle use. Heart: Regular rate and rhythm, 2 out of 6 systolic ejection murmur at left sternal border, without JVD. Abdomen: Soft, nontender, no masses, normoactive bowel sounds. Extremities: Without clubbing, cyanosis, without edema. Neuro: Nonfocal exam, strength, 5 out of 5 Skin: Within normal limits without lesions. Psych: Mood and affect: Normal Labs/Ovidio Results: Laboratory Tests 12/22 12/22 12/22 0920 0840 0736 Chemistry Sodium (137 - 145 mmol/L) 138 Cancelled Potassium (3.5 - 5.1 mmol/L) 3.9 Cancelled Chloride (98 - 107 mmol/L) 109 H Cancelled Carbon Dioxide (22 - 30 mmol/L) 18 L Cancelled Anion Gap (5 - 16) 11 Cancelled BUN (7 - 17 mg/dL) 15 Cancelled Creatinine (0.5 - 1.0 mg/dL) 1.1 H Cancelled Estimated GFR (>60 ml/min) 47 L Glucose (65 - 99 mg/dL) 98 Cancelled Calcium (8.4 - 10.2 mg/dL) 7.8 L Cancelled Phosphorus (2.5 - 4.5 mg/dL) 3.3 Cancelled Magnesium (1.6 - 2.3 mg/dL) 1.5 L Cancelled Total Bilirubin (0.2 - 1.3 mg/dL) 0.4 Cancelled AST (14 - 36 U/L) 118 H Cancelled ALT (9 - 52 U/L) 61 H Cancelled Troponin I (< 0.11 ng/ml) 3.81 *H Albumin (3.5 - 5.0 g/dL) 2.2 L Cancelled Coagulation PT (9.4 - 12.5 SEC) 16.3 H INR (0.90 - 1.19) 1.49 H Hematology CBC w Diff MAN DIFF ORDERED WBC (4.8 - 10.8 /CUMM) 31.6 *H RBC (4.20 - 5.40 /CUMM) 3.00 L Hgb (12.0 - 16.0 G/DL) 7.9 L Hct (37 - 47 %) 24.4 L MCV (81.0 - 99.0 FL) 81.3 MCH (27.0 - 31.0 PG) 26.5 L MCHC (33.0 - 37.0 G/DL) 32.6 L RDW (11.5 - 14.5 %) 15.6 H Plt Count (130 - 400 /CUMM) 354 MPV (7.4 - 10.4 FL) 10.0 Gran % (42.2 - 75.2 %) 90.3 H Lymphocytes % (20.5 - 51.1 %) 5.9 L Monocytes % (1.7 - 9.3 %) 3.3 Eosinophils % (0 - 5 %) 0 Basophils % (0.0 - 2.0 %) 0.5 Absolute Granulocytes (1.4 - 6.5 /CUMM) 28.5 H Segmented Neutrophils (42.2 - 75.2 %) 77 H Band Neutrophils (0.0 - 5.0 %) 12 H Absolute Lymphocytes (1.2 - 3.4 /CUMM) 1.9 Lymphocytes (20.5 - 51.1 %) 7 L Monocytes (1.7 - 9.3 %) 4 Absolute Monocytes (0.10 - 0.60 /CUMM) 1.0 H Absolute Eosinophils (0.0 - 0.7 /CUMM) 0 Absolute Basophils (0.0 - 0.2 /CUMM) 0.1 Platelet Estimate (ADEQUATE) VERIFIED BY SMEAR Polychromasia 1+ Poikilocytosis 1+ Anisocytosis 1+ Ovalocytes 1+ [place] Cells 1+ 12/22 12/22 12/22 0630 0220 0220 Chemistry Sodium (137 - 145 mmol/L) 138 Potassium (3.5 - 5.1 mmol/L) 3.9 Chloride (98 - 107 mmol/L) 109 H Carbon Dioxide (22 - 30 mmol/L) 18 L Anion Gap (5 - 16) 11 BUN (7 - 17 mg/dL) 15 Creatinine (0.5 - 1.0 mg/dL) 1.2 H Estimated GFR (>60 ml/min) 43 L BUN/Creatinine Ratio (7 - 25 %) 12.5 Lactic Acid (0.7 - 2.1 mmol/L) 1.5 2.4 H Troponin I (< 0.11 ng/ml) 4.76 *H 12/22 12/21 0005 2258 Chemistry Lactic Acid (0.7 - 2.1 mmol/L) 2.8 H Hematology CBC w Diff MAN DIFF ORDERED WBC (4.8 - 10.8 /CUMM) 12.9 H RBC (4.20 - 5.40 /CUMM) 2.80 L Hgb (12.0 - 16.0 G/DL) 7.4 *L Hct (37 - 47 %) 22.5 L MCV (81.0 - 99.0 FL) 80.2 L MCH (27.0 - 31.0 PG) 26.4 L MCHC (33.0 - 37.0 G/DL) 32.9 L RDW (11.5 - 14.5 %) 14.5 Plt Count (130 - 400 /CUMM) 385 MPV (7.4 - 10.4 FL) 9.7 Gran % (42.2 - 75.2 %) 94.7 H Lymphocytes % (20.5 - 51.1 %) 4.0 L Monocytes % (1.7 - 9.3 %) 1.3 L Eosinophils % (0 - 5 %) 0 Basophils % (0.0 - 2.0 %) 0 Absolute Granulocytes (1.4 - 6.5 /CUMM) 12.2 H Segmented Neutrophils (42.2 - 75.2 %) 89 H Band Neutrophils (0.0 - 5.0 %) 9 H Absolute Lymphocytes (1.2 - 3.4 /CUMM) 0.5 L Lymphocytes (20.5 - 51.1 %) 1 L Monocytes (1.7 - 9.3 %) 1 L Absolute Monocytes (0.10 - 0.60 /CUMM) 0.2 Absolute Eosinophils (0.0 - 0.7 /CUMM) 0 Absolute Basophils (0.0 - 0.2 /CUMM) 0 Platelet Estimate (ADEQUATE) ADEQUATE Polychromasia 1+ Hypochromic-Microcytic 1+ Poikilocytosis 1+ Anisocytosis 1+ Microcytic Cells 1+ Ovalocytes 1+ Other Body Source Fld Total RBCs Counted (%) 100 12/21 Urines Urine Color (YEL,AMB,STR) BLDY H Urine Clarity (CLEAR) TURBD H Urine pH (5.0 - 8.0) 6.0 Ur Specific [place] (1.001 - 1.035) 1.025 Urine Protein (NEG,<30 MG/DL) >=300 H Urine Ketones (NEG) TRACE H Urine Nitrite (NEG) POS H Urine Bilirubin (NEG) NEG@ICTO Urine Urobilinogen (0.1 - 1.0 EU/dl) 2.0 H Ur Leukocyte Esterase (NEG) LARGE H Ur Microscopic SEDIMENT EXAMINED Urine RBC (0 - 5 /HPF) PACKD H Urine WBC (0 - 2 /HPF) PACKD H Ur Epithelial Cells (NONE,FEW) FEW Urine Bacteria (NEG/NONE) MANY H Micro UA Comment MORE INFO: H Urine Hemoglobin (NEG) LARGE H Urine Osmolality (300 - 1000 MOSM/KG) 457 Ur Random Creatinine (mg/dL) 99.4 Ur Random Sodium (30 - 90 mmol/L) 54 Ur Random Potassium (mmol/L) 70.5 Fraction Sodium Excret (<1% %) 0.4 Urine Glucose (N MG/DL) NEG 12/21 1949 Chemistry Sodium (137 - 145 mmol/L) 132 L Potassium (3.5 - 5.1 mmol/L) 5.4 H Chloride (98 - 107 mmol/L) 98 Carbon Dioxide (22 - 30 mmol/L) 26 Anion Gap (5 - 16) 8 BUN (7 - 17 mg/dL) 15 Creatinine (0.5 - 1.0 mg/dL) 0.9 Estimated GFR (>60 ml/min) 60 BUN/Creatinine Ratio (7 - 25 %) 16.7 Glucose (65 - 99 mg/dL) 122 H Lactic Acid (0.7 - 2.1 mmol/L) 1.3 Calcium (8.4 - 10.2 mg/dL) 9.1 Iron (37 - 170 ug/dL) 43 TIBC (265 - 497 ug/dL) 193 L Ferritin (11.1 - 264 ng/mL) 250.0 Total Bilirubin (0.2 - 1.3 mg/dL) 0.6 AST (14 - 36 U/L) 40 H ALT (9 - 52 U/L) 22 Alkaline Phosphatase (<127 U/L) 160 H Troponin I (< 0.11 ng/ml) 0.24 *H Total Protein (6.3 - 8.2 g/dL) 6.6 Albumin (3.5 - 5.0 g/dL) 2.7 L Globulin (1.9 - 4.2 gm/dL) 3.9 Albumin/Globulin Ratio (1.1 - 2.2 %) 0.7 L Hematology CBC w Diff NO MAN DIFF REQ WBC (4.8 - 10.8 /CUMM) 15.2 H RBC (4.20 - 5.40 /CUMM) 3.28 L Hgb (12.0 - 16.0 G/DL) 8.7 L Hct (37 - 47 %) 26.3 L MCV (81.0 - 99.0 FL) 80.2 L MCH (27.0 - 31.0 PG) 26.7 L MCHC (33.0 - 37.0 G/DL) 33.3 RDW (11.5 - 14.5 %) 15.1 H Plt Count (130 - 400 /CUMM) 512 H MPV (7.4 - 10.4 FL) 9.9 Gran % (42.2 - 75.2 %) 84.6 H Lymphocytes % (20.5 - 51.1 %) 6.2 L Monocytes % (1.7 - 9.3 %) 8.7 Eosinophils % (0 - 5 %) 0 Basophils % (0.0 - 2.0 %) 0.5 Absolute Granulocytes (1.4 - 6.5 /CUMM) 12.9 H Absolute Lymphocytes (1.2 - 3.4 /CUMM) 0.9 L Absolute Monocytes (0.10 - 0.60 /CUMM) 1.3 H Absolute Eosinophils (0.0 - 0.7 /CUMM) 0 Absolute Basophils (0.0 - 0.2 /CUMM) 0.1 Assessment/Plan Assessment/Plan 82-year-old woman with no significant past medical history. She presented to our hospital with symptoms of severe chills, fever and fatigue. On arrival, she was noted to be septic, as well as hypotensive and tachycardic. Initial and subsequent troponin isoenzymes were positive. Elevated troponin isoenzyme: The patient presents with an elevated troponin isoenzyme in the setting of sepsis. The overall troponin rise and fall pattern is more consistent with an acute type II non-ST segment ovation myocardial infarction (supply/demand mismatch) in the setting of tachycardia and hypotension rather than troponin isoenzyme elevation secondary to sepsis alone. At this time, we will continue with supportive measures and attempt to maintain an adequate blood pressure. As she is currently hypotensive, beta-blockers will be held; however, should be resumed when able. Pressors may be required to maintain an adequate blood pressure. We will obtain an echocardiogram to delineate her current cardiac structure and function. Further consideration for stress testing to evaluate for an underlying burden of ischemia will be given, likely as an outpatient after discharge. Sepsis: The patient presents with sepsis likely secondary to urinary tract source. We will continue with supportive measures including volume resuscitation. Further adjustments may be required based on results of her echocardiogram; however, she is currently tolerating her volume resuscitation without evidence of congestive heart failure. Further management of sepsis will be made as per the ICU/ infectious disease team. Thank you for allowing us to participate in the care of your patient. Please do not hesitate to contact us further with any questions. Sincerely, Merritt Lopes MD [facility] Consult Acknowledgment - Thank you for your consult request.
--- NOTE | 2017-12-22 10:58 | CT SCAN REPORT ---
EXAMINATION: CT ABDOMEN AND PELVIS WITH CONTRAST CLINICAL INFORMATION: Sepsis of urological origin. Evaluate for intra-abdominal abscess, perinephric abscess. COMPARISON: None TECHNIQUE: Multidetector volumetric imaging was performed of the abdomen and pelvis following IV administration of 95 mL of Optiray 320 intravenous contrast. Sagittal and coronal reformatted images were obtained on the technologist's workstation. DLP: 291 mGy-cm FINDINGS: LUNG BASES: Small bilateral pleural effusions produce compressive atelectasis of lower lobes. LIVER, GALLBLADDER, AND BILIARY TREE: There is hepatomegaly. Liver is diffusely heterogeneous, likely from hepatic venous congestion. No focal liver lesions are seen. No hepatic abscess. Gallbladder is surgically absent. No intrahepatic or extrahepatic bile duct dilatation. PANCREAS: The pancreatic tail is anterosuperiorly displaced by the left renal mass. No focal pancreatic lesion. SPLEEN: Unremarkable. ADRENAL GLANDS: Unremarkable. KIDNEYS AND URETERS: The right kidney is normal. A large, heterogeneously enhancing, centrally necrotic mass of the [id number] pole of the left kidney, consistent with renal cell carcinoma, measures up to 10.5 cm transverse, 11.6 cm AP and 13.5 cm craniocaudal. The tumor, which is confined to Gerota's fascia, exerts mass effect upon the renal sinus fat. No tumor invasion into the renal vein or into surrounding structures. BLADDER: The bladder is decompressed by a Echevarria catheter. GASTROINTESTINAL TRACT: Stomach is underdistended. Bowel loops are normal in caliber. Pancolonic diverticulosis. However, no focal bowel wall thickening or focal fat stranding to suggest acute diverticulitis. Small amount of ascitic fluid is present within the abdomen. No pneumoperitoneum. ABDOMINAL WALL: Mild edema in subcutaneous tissues of the abdominal wall, flanks, back and thighs. No focal fluid collection. LYMPH NODES: No pathologic sized lymph nodes within the abdomen or pelvis. VASCULAR: Mild atherosclerosis of the abdominal aorta without aneurysm. PELVIC VISCERA: 2 cm calcified uterine leiomyoma. Small amount of free fluid is present in the pelvis. No abscess. OSSEOUS STRUCTURES: Bones appear diffusely osteopenic. L4-L5 facet osteoarthritis and degenerative disc disease with 0.8 cm (approximately 25%) of anterolisthesis of L4 on L5. No aggressive osseous lesions. IMPRESSION: 1. Large, heterogeneously enhancing mass of the jhx-kn-pygxe pole the left kidney measuring up to 13.5 cm is consistent with renal cell carcinoma. No evidence of lymphadenopathy or distant metastasis. 2. Anasarca. The heterogeneous hepatic attenuation is likely due to hepatic venous congestion. 3. No evidence of abdominal abscess. 4. Pancolonic diverticulosis without diverticulitis.
--- NOTE | 2017-12-22 11:39 | ECHOCARDIOGRAM REPORT ---
DIANE GARCIA Age: 82 : 1935 Gender: F Exam Date: 12/22/2017 10:45 Exam Location: [facility] Ht (in): 65 Wt (lb): 160 BSA: 1.84 BP: 90 / 49 Ordering Physician: Filiberto Chawla MD Referring Physician: Filiberto Chawla MD Technologist: Ravin Womack [facility] Room Number: 107 Indications: MYOCARDIAL ISCHEMIA/IL Rhythm: Technical Quality: Good FINDINGS Left Ventricle Normal LV chamber size and wall thickness. The estimated LVEF is approximately 45%. There is basal to mid anteroseptal wall akinesis. Right Ventricle Normal RV chamber size and function. Right Atrium Normal right atrium Left Atrium Borderline dilated left atrium Mitral Valve Mildly thickened mitral valve leaflets with normal leaflet opening. There is mild mitral annular calcification. There is moderate mitral regurgitation. Aortic Valve Trileaflet aortic valve with mild leaflet calcification. There is adequate leaflet opening. There is mild aortic insufficiency. Tricuspid Valve Grossly normal appearing tricuspid valve leaflet structure. There is moderate tricuspid regurgitation. The estimated PA systolic pressure is 38 mmHg Pulmonic Valve Grossly normal appearing pulmonic valve leaflet structure and function Pericardium There is no pericardial effusion Great Vessels Grossly normal great vessels CONCLUSIONS Normal LV chamber size and wall thickness. The estimated LVEF is approximately 45%. There is basal to mid anteroseptal wall akinesis. There is moderate mitral regurgitation. There is mild aortic insufficiency. There is moderate tricuspid regurgitation. The estimated PA systolic pressure is 38 mmHg. Merritt Lopes M.D. (Electronically Signed) Final Date: 22 December 2017 11:39 MEASUREMENTS (Male / Female) Normal Values 2D ECHO LV Diastolic Diameter PLAX 4.8 cm 4.2 - 5.9 / 3.9 - 5.3 cm LV Systolic Diameter PLAX 3.5 cm 2.1 - 4.0 cm LV Fractional Shortening PLAX 27.1 % 25 - 46 % LV Ejection Fraction 2D Teich 52.7 % IVS Diastolic Thickness 0.8 cm LVPW Diastolic Thickness 0.9 cm LV Relative Wall Thickness 0.4 RV Internal Dim ED PLAX 3.1 cm 1.9 - 3.8 cm LVOT Diameter 1.7 cm Aortic Root Diameter 2.7 cm LA Systolic Diameter LX 4.1 cm 3.0 - 4.0 / 2.7 - 3.8 cm Ascending Aorta Diameter 3.0 cm DOPPLER AV Peak Velocity 201.0 cm/s AV Peak Gradient 16.2 mmHg AV Mean Velocity 125.0 cm/s AV Mean Gradient 8.0 mmHg AV Velocity Time Integral 45.6 cm LVOT Peak Velocity 97.0 cm/s LVOT Peak Gradient 3.8 mmHg LVOT Mean Velocity 67.6 cm/s LVOT Mean Gradient 2.0 mmHg LVOT Velocity Time Integral 25.1 cm LVOT Stroke Volume 57.0 cm AV Area Cont Eq vti 1.2 cm AV Area Cont Eq pk 1.1 cm MV Peak Velocity 132.0 cm/s MV Peak Gradient 7.0 mmHg MV Mean Velocity 91.9 cm/s MV Mean Gradient 4.0 mmHg Mitral E Point Velocity 91.8 cm/s Mitral A Point Velocity 118.0 cm/s Mitral E to A Ratio 0.8 MV PHT Velocity 118.0 cm/s MV Deceleration Garvin 214.0 cm/s MV Pressure Half Time 165.4 ms MV Area PHT 1.3 cm MV Deceleration Time 208.0 ms MR Peak Velocity 472.7 cm/s MR Peak Gradient 89.4 mmHg TR Peak Velocity 266.0 cm/s TR Peak Gradient 28.3 mmHg Right Atrial Pressure 10.0 mmHg Pulmonary Artery Systolic Pressu 38.3 mmHg Right Ventricular Systolic Press 38.3 mmHg PV Peak Velocity 143.5 cm/s PV Peak Gradient 8.2 mmHg PV Mean Velocity 97.7 cm/s PV Mean Gradient 5.0 mmHg PV Velocity Time Integral 35.6 cm LV E' Lateral Velocity 6.4 cm/s Mitral E to LV E' Lateral Ratio 14.3 LV E' Septal Velocity 7.4 cm/s Mitral E to LV E' Septal Ratio 12.4
[2017-12-22 16:00] VITALS: BP 88/48
[2017-12-23] VITALS: BP 76/40
[2017-12-23 08:00] VITALS: BP 87/50
--- NOTE | 2017-12-23 08:16 | PN- Resident CRCU ---
Jeff King 12/23/17 0815: Subjective HPI/CRCU Issues: 82 year old F presented to ED c/o sudden onset of chills that started the evening of 12/21, malaise and fatigue of 1 day duration. Patient is talkative, cooperative, does not look in acute distress. She is hypotensive, with a MAP of 53, blood cultures growing gram negative rods likely from urinary origin. CT abdomen on 08/23 showed a 13.5cm heterogeneously enhacing mass in L kidney consistent with RCC. Had extensive conversation about her presumptive RCC diagnosis and care going forward, especially the possibility of a central line and pressors due to her consistently low BP in spite of fluid but pt states that the "less intervention, the better". 24 Hour Events: No events overnight Objective Vital Signs & I&O Last 8 Hrs of Vitals and I&O: Intake & Output 12/23 1600 12/23 0800 12/23 0000 Intake Total 1550 1820 Output Total 284 265 Balance 1266 1555 Intake, IV 1550 1700 Intake, Oral 120 Output, Urine 284 265 Laboratory Tests 12/23 12/23 0820 0810 Chemistry Sodium (137 - 145 mmol/L) 140 Potassium (3.5 - 5.1 mmol/L) 3.9 Chloride (98 - 107 mmol/L) 114 H Carbon Dioxide (22 - 30 mmol/L) 16 L Anion Gap (5 - 16) 10 BUN (7 - 17 mg/dL) 15 Creatinine (0.5 - 1.0 mg/dL) 0.9 Estimated GFR (>60 ml/min) 60 Glucose (65 - 99 mg/dL) 65 Calcium (8.4 - 10.2 mg/dL) 7.8 L Phosphorus (2.5 - 4.5 mg/dL) 3.2 Magnesium (1.6 - 2.3 mg/dL) 1.7 Total Bilirubin (0.2 - 1.3 mg/dL) 0.1 L AST (14 - 36 U/L) 63 H ALT (9 - 52 U/L) 58 H Albumin (3.5 - 5.0 g/dL) 1.9 L Coagulation PT (9.4 - 12.5 SEC) 16.2 H INR (0.90 - 1.19) 1.48 H Hematology CBC w Diff MAN DIFF ORDERED WBC (4.8 - 10.8 /CUMM) 20.0 H RBC (4.20 - 5.40 /CUMM) 3.07 L Hgb (12.0 - 16.0 G/DL) 8.0 L Hct (37 - 47 %) 25.0 L MCV (81.0 - 99.0 FL) 81.4 MCH (27.0 - 31.0 PG) 25.9 L MCHC (33.0 - 37.0 G/DL) 31.9 L RDW (11.5 - 14.5 %) 15.1 H Plt Count (130 - 400 /CUMM) 373 MPV (7.4 - 10.4 FL) 9.7 Gran % (42.2 - 75.2 %) 86.6 H Lymphocytes % (20.5 - 51.1 %) 6.5 L Monocytes % (1.7 - 9.3 %) 6.4 Eosinophils % (0 - 5 %) 0.3 Basophils % (0.0 - 2.0 %) 0.2 Absolute Granulocytes (1.4 - 6.5 /CUMM) 17.3 H Segmented Neutrophils (42.2 - 75.2 %) 75 Band Neutrophils (0.0 - 5.0 %) 9 H Absolute Lymphocytes (1.2 - 3.4 /CUMM) 1.3 Lymphocytes (20.5 - 51.1 %) 7 L Monocytes (1.7 - 9.3 %) 7 Absolute Monocytes (0.10 - 0.60 /CUMM) 1.3 H Eosinophils (0 - 5.0 %) 1 Absolute Eosinophils (0.0 - 0.7 /CUMM) 0.1 Basophils (0.0 - 2.0 %) 1 Absolute Basophils (0.0 - 0.2 /CUMM) 0 Platelet Estimate (ADEQUATE) VERIFIED BY SMEAR Polychromasia 1+ Anisocytosis 1+ Vital Signs Date Time Temp Pulse Resp B/P B/P Pulse O2 O2 Flow FiO2 Mean Ox Delivery Rate 12/23 0400 99 Nasal 4.0L Cannula 12/23 0000 97.8 69 22 76/40 99 Nasal 2.0L Cannula 12/23 0000 99 Nasal 2.0L Cannula 12/22 2000 98 Nasal 2.0L Cannula 12/22 1600 98 Nasal 2.0L Cannula 12/22 1600 97.2 74 16 88/48 98 Nasal 2.0L Cannula 12/22 1200 100 Nasal 2.0L Cannula Exam General Appearance: no apparent distress, alert, awake, thin Head: atraumatic, normal appearance Neck: normal inspection, supple Respiratory: normal breath sounds, chest non-tender, no respiratory distress Cardiovascular: regular rate/rhythm, normal peripheral pulses Gastrointestinal: normal bowel sounds, soft, non-tender Extremities: normal inspection, normal capillary refill, no edema Skin: intact, normal color Skin Temp/Moisture Exam: Warm/Dry Sepsis Skin Exam (color): Normal for Ethnicity Sepsis Peripheral Pulse Location: Dorsalis Pedis Sepsis Peripheral Pulse Exam: Normal Sepsis Cap Refill Exam: <2 Sec Current Medications: Current Medications Sig/Yuri Start time Last Medication Dose Route Stop Time Status Admin Acetaminophen 500 MG Q6P PRN 12/21 2300 AC PO Ceftazidime 1,000 MG BID 12/22 0430 DC 12/22 IV 12/23 0429 2123 Enoxaparin Sodium 40 MG DAILY 12/22 0900 AC 12/23 SC 1022 Heparin Sodium 25,000 UNIT .STK-MED ONE 12/22 1712 DC (Porcine) IV 12/22 1713 Lactated Ringer's 1,000 ML Q6H 12/23 0945 AC 12/23 IV 1022 Magnesium Oxide 400 MG DAILY 12/23 0900 AC 12/23 PO 1022 Pantoprazole Sodium 40 MG .STK-MED ONE 12/22 1712 DC IV 12/22 1713 Pantoprazole Sodium 40 MG DAILY 12/22 0430 AC 12/23 IV 1022 Sodium Chloride 500 ML BOLUS ONE 12/23 0015 DC 12/23 IV 12/23 0114 0007 Sodium Chloride 500 ML BOLUS ONE 12/22 2215 DC 12/22 IV 12/22 2314 2218 Sodium Chloride 1,000 ML Q10H 12/21 2300 DC 12/23 IV 0711 Impression/Plan Impression/Problem List Impression: Impression/Plan: 82 year old F with PMH kidney stones that presented to the ED with complains of sudden onset chills, malaise and fatigue of 1 day duration. Patient is talkative , cooperative, does not look in acute distress. Of note a 50 pound unintentional weight loss since last january. She is hypotensive, with a MAP of 65, blood cultures growing gram negative rods from urinary source. CT abdomen 12/22 showed 3.5cm heterogeneously enhacing mass in L kidney consistent with RCC. Problems: #Urosepsis #Elevated Troponin #L RCC Assesment and Plan VS- BP: 94/50, HR: 69, RR:22, T: 97.8, Total In&Out as of 09/26: 82248/827 Respiratory Patient is breathing comfortably, sat 99% with 4L on nasal cannula. Lungs are CTA B/L, no wheezes, crepitus or rhonchi heard. CXR shows no infiltrates or consolidation. Infection Pt presentation indicative of infection. Tmax of 103, trending down, WBC 15.2 on admit ->12.9 ->31.6->20 latest; positive urianalysis indicates an infection of urinary origin[place] [address]/827 since admission have failed to raise BP above 90, making the likelihood of sepsis-induced hypotension stronger. MAP has mantained over 60 over the last 24 hours and with improvement in renal function as evidenced by her Cr decrease from 1.1 -> 0.9 and slightly improving urinary output. Plan of a possible central line and pressor support was discussed with the patient but was refused. Lactic acid trend 1.5 ->2.4, indicating increasing inflammatory burden. Blood cultures grew gram neg rods, urine cult show E.coli. -Coverage switched ceftazidime to ceftriaxone 1g IV daily -urine cult grew E.coli -Mantain MAP>60 Cardiac Pt. with elevated troponin on arrival. Trend: 0.24->4.76->3.81. Sharp increase/ decrease in the setting of sepsis might indicate a type II non-ST segment elevation NE; supply-demand mismatch. Patient has not complained of chest pain. EKG findings suggestive of LBBB, but in the absence of a baseline EKG, underlying CAD cannot be ruled out. -Cardio consulted -Echo pending Hematological Patient has a stable Hb trend of 8.7->7.4->7.9-> and MCV of 81.3 on the latest am lab. CT abdomen showed a large, centrally necrotic mass of the mid-to lower pole of the left kidney, consistent with renal cell carcinoma, measures up to 10.5 cm transverse, 11.6 cm AP and 13.5 cm craniocaudal. No tumor invasion into the renal vein or into surrounding structures. PT/INR 16.2/1.48 have mantained from her baseline. ALT/AST: 63/58; Low albumin (1.9). Pt also has abnormal morphology of RBCs on PBS. These liver findings are consistent with both her underlying malignancy and subsequent 50 pound weight loss in the span of one year, and while her septic status might also be a factor explaining her liver lab abnormalities, the magnitude change is not as significant as how it would typically be seen after long periods of hypotension. -Mantain Hb > 8 Metabolic Hyponatremic on admit 132->138 ->140 latest am lab Hyperkalemic on admit 5.4 -> 3.9 ->3.9 latest am lab -Will continue to monitor Alimentary -Regular diet -Nutrition consult Neuro Patient is cooperative and talkative, AAOx3. DNR/DNI Problem List: 1. Sepsis 2. Elevated troponin 3. Renal cell carcinoma Pain Ratin Tomorrow's Labs & Rationales: CBC/ICU Plan DVT/Prophylaxis: mechanical, pharmacological Chandrakant Eden MD 12/23/17 0846: Attending MD Review Statement Attending Sign Off Attending Cosign Statement: I have: examined this patient, reviewed avalbl EMR data, personally reviewd images, discussd w/resident/PA/MAIL OFFICER, discussed mgmt plan w/vicki, discussed mgmt plan w/CM, discussed mgmt plan w/pt, agreed w/resident/PA/MAIL OFFICER, amended to note. Other Findings: Chandrakant Turner M.D. have examined this patient, reviewed available EMR data, personally reviewed images, discussed with resident/PA/MAIL OFFICER, discussed management plan with housestaff and nursing staff, discussed managment plan all of healthcare providers, discussed management plan with patient and/or family, agreed with resident/PA/MAIL OFFICER. The past history and parts of the chart have been autopopulated. Impression 82 year old woman * septic shock however decliend vasopressors - uti as source - GNR in bcx and ucx, L kidney mass consistent with RCC * troponinemia likely type 2 NE Plan -maintain map of >60 -DNR/DNI, declines central access and may wish to pursue conservative options given mass on left kidney consistent with RCC -f/u urology recommendations -f/u all cultures -cardiology consultation -check coags -maintain hgb >8 DVT prophylaxis at all times TTS 45 min -cardiology consultation -check coags -maintain hgb >8 DVT prophylaxis at all times TTS 45 min
[2017-12-23 08:49] LABS: ABSOLUTE BASOPHIL COUNT 0 /CUMM (0.0-0.2); ABSOLUTE EOSINOPHIL COUNT 0.1 /CUMM (0.0-0.7); ABSOLUTE GRANULOCYTE CT 17.3 /CUMM (1.4-6.5); ABSOLUTE LYMPH COUNT 1.3 /CUMM (1.2-3.4); ABSOLUTE MONOCYTE COUNT 1.3 /CUMM (0.10-0.60); BASOPHIL % 0.2 % (0.0-2.0); EOSINOPHIL % 0.3 % (0-5); GRANULOCYTE % 86.6 % (42.2-75.2); MEAN CORPUSCULAR HGB 25.9 PG (27.0-31.0); MEAN CORPUSCULAR HGB CONC 31.9 G/DL (33.0-37.0); MEAN CORPUSCULAR VOLUME 81.4 FL (81.0-99.0); MEAN PLATELET VOLUME 9.7 FL (7.4-10.4); PLATELET COUNT 373 /CUMM (130-400); RBC DISTRIBUTION WIDTH 15.1 % (11.5-14.5); RED BLOOD CELL CT 3.07 /CUMM (4.20-5.40)
[2017-12-23 08:56] LABS: PT 16.2 SEC (9.4-12.5)
--- NOTE | 2017-12-23 11:34 | PN- Cardiology ---
Subjective Subjective: Patient has been informed yesterday of the renal mass which looks like a RCC. She states that she does not desire any invasive or very involved procedures, and is very at peace with the idea of facing . Feeling well, no dyspnea, no chest pain. Apyretic. Alert and talkative. BP has improved with volume resuscitation and antibiotics, however systolic BP still < 100 mmHg, but patient is perfusing well. Objective Vital Signs and I&Os Vital Signs Date Time Temp Pulse Resp B/P B/P Pulse O2 O2 Flow FiO2 Mean Ox Delivery Rate 12/23 0400 99 Nasal 4.0L Cannula 12/23 0000 97.8 69 22 76/40 99 Nasal 2.0L Cannula 12/23 0000 99 Nasal 2.0L Cannula 12/22 2000 98 Nasal 2.0L Cannula 12/22 1600 98 Nasal 2.0L Cannula 12/22 1600 97.2 74 16 88/48 98 Nasal 2.0L Cannula 12/22 1200 100 Nasal 2.0L Cannula Intake & Output 12/23 1600 12/23 0800 12/23 0000 12/22 1600 12/22 0800 12/22 0000 Intake Total 1550 1820 2720 7859 Output Total 284 265 200 178 Balance 1266 1555 2520 7681 Intake, IV 1550 1700 2720 7839 Intake, Oral 120 0 20 Output, Urine 284 265 200 178 Patient 142 lb 158 lb 160 lb Weight Weight Bed scale Estimated Measurement Method Physical Exam: Neck: good carotids upstroke bilaterally, no JVD Respiratory: Scattered rhonchi, air movement is good. Heart: Regular rate and rhythm, 2 out of 6 systolic ejection murmur at left sternal border Abdomen: Soft, nontender, no masses, normal bowel sounds. Extremities: Without clubbing, cyanosis, without edema. Neuro: Nonfocal exam, strength, 5 out of 5 Skin: Within normal limits without lesions. Current Medications: Current Medications Sig/Yuri Start time Last Medication Dose Route Stop Time Status Admin Acetaminophen 500 MG Q6P PRN 12/21 2300 AC PO Ceftazidime 1,000 MG BID 12/22 0430 DC 12/22 IV 12/23 0429 2123 Ceftriaxone Sodium 1,000 MG DAILY 12/23 1243 AC 12/23 IV 1400 Enoxaparin Sodium 40 MG DAILY 12/22 0900 AC 12/23 SC 1022 Lactated Ringer's 1,000 ML Q6H 12/23 0945 AC 12/23 IV 1735 Magnesium Oxide 400 MG DAILY 12/23 0900 AC 12/23 PO 1022 Pantoprazole Sodium 40 MG DAILY 12/22 0430 AC 12/23 IV 1022 Sodium Chloride 500 ML BOLUS ONE 12/23 0015 DC 12/23 IV 12/23 0114 0007 Sodium Chloride 500 ML BOLUS ONE 12/22 2215 DC 12/22 IV 12/22 2314 2218 Sodium Chloride 1,000 ML Q10H 12/21 2300 DC 12/23 IV 0711 Results Last 48 Hrs of Labs/Mics: Laboratory Tests 12/23/17 0820: CBC w Diff MAN DIFF ORDERED, RBC 3.07 L, MCV 81.4, MCH 25.9 L, MCHC 31.9 L, RDW 15.1 H, MPV 9.7, Gran % 86.6 H, Lymphocytes % 6.5 L, Monocytes % 6.4, Eosinophils % 0.3, Basophils % 0.2, Absolute Granulocytes 17.3 H, Segmented Neutrophils 75, Band Neutrophils 9 H, Absolute Lymphocytes 1.3, Lymphocytes 7 L, Monocytes 7, Absolute Monocytes 1.3 H, Eosinophils 1, Absolute Eosinophils 0.1, Basophils 1, Absolute Basophils 0, Platelet Estimate VERIFIED BY SMEAR, Polychromasia 1+, Anisocytosis 1+ 12/23/17 0810: Anion Gap 10, Estimated GFR 60, Glucose 65, Calcium 7.8 L, Phosphorus 3.2, Magnesium 1.7, Total Bilirubin 0.1 L, AST 63 H, ALT 58 H, Albumin 1.9 L, PT 16.2 H, INR 1.48 H 12/22/17 0920: PT 16.3 H, INR 1.49 H 12/22/17 0840: Anion Gap 11, Estimated GFR 47 L, Glucose 98, Calcium 7.8 L, Phosphorus 3.3, Magnesium 1.5 L, Total Bilirubin 0.4, AST 118 H, ALT 61 H, Troponin I 3.81 *H , Albumin 2.2 L, CBC w Diff MAN DIFF ORDERED, RBC 3.00 L, MCV 81.3, MCH 26.5 L, MCHC 32.6 L, RDW 15.6 H, MPV 10.0, Gran % 90.3 H, Lymphocytes % 5.9 L, Monocytes % 3.3, Eosinophils % 0, Basophils % 0.5, Absolute Granulocytes 28.5 H , Segmented Neutrophils 77 H, Band Neutrophils 12 H, Absolute Lymphocytes 1.9, Lymphocytes 7 L, Monocytes 4, Absolute Monocytes 1.0 H, Absolute Eosinophils 0 , Absolute Basophils 0.1, Platelet Estimate VERIFIED BY SMEAR, Polychromasia 1+, Poikilocytosis 1+, Anisocytosis 1+, Ovalocytes 1+, [place] Cells 1+ 12/22/17 0736: Sodium Cancelled, Potassium Cancelled, Chloride Cancelled, Carbon Dioxide Cancelled, Anion Gap Cancelled, BUN Cancelled, Creatinine Cancelled, Glucose Cancelled, Calcium Cancelled, Phosphorus Cancelled, Magnesium Cancelled, Total Bilirubin Cancelled, AST Cancelled, ALT Cancelled, Albumin Cancelled 12/22/17 0630: Lactic Acid 1.5 12/22/17 0220: Lactic Acid 2.4 H 12/22/17 0220: Anion Gap 11, Estimated GFR 43 L, BUN/Creatinine Ratio 12.5, Troponin I 4.76 *H 12/22/17 0005: CBC w Diff MAN DIFF ORDERED, RBC 2.80 L, MCV 80.2 L, MCH 26.4 L, MCHC 32.9 L , RDW 14.5, MPV 9.7, Gran % 94.7 H, Lymphocytes % 4.0 L, Monocytes % 1.3 L, Eosinophils % 0, Basophils % 0, Absolute Granulocytes 12.2 H, Segmented Neutrophils 89 H, Band Neutrophils 9 H, Absolute Lymphocytes 0.5 L, Lymphocytes 1 L, Monocytes 1 L, Absolute Monocytes 0.2, Absolute Eosinophils 0 , Absolute Basophils 0, Platelet Estimate ADEQUATE, Polychromasia 1+, Hypochromic-Microcytic 1+, Poikilocytosis 1+, Anisocytosis 1+, Microcytic Cells 1+, Ovalocytes 1+, Fld Total RBCs Counted 100 12/21/17 2258: Lactic Acid 2.8 H 12/21/17 2000: Urine Color BLDY H, Urine Clarity TURBD H, Urine pH 6.0, Ur Specific [place] 1.025, Urine Protein >=300 H, Urine Ketones TRACE H, Urine Nitrite POS H, Urine Bilirubin NEG@ICTO, Urine Urobilinogen 2.0 H, Ur Leukocyte Esterase LARGE H, Ur Microscopic SEDIMENT EXAMINED, Urine RBC PACKD H, Urine WBC PACKD H, Ur Epithelial Cells FEW, Urine Bacteria MANY H, Micro UA Comment MORE INFO: H, Urine Hemoglobin LARGE H, Urine Glucose NEG 12/21/171999: Urine Osmolality 457, Ur Random Creatinine 99.4, Ur Random Sodium 54, Ur Random Potassium 70.5, Fraction Sodium Excret 0.4 12/21/171949: Anion Gap 8, Estimated GFR 60, BUN/Creatinine Ratio 16.7, Glucose 122 H, Lactic Acid 1.3, Calcium 9.1, Iron 43, TIBC 193 L, Ferritin 250.0, Total Bilirubin 0.6 , AST 40 H, ALT 22, Alkaline Phosphatase 160 H, Troponin I 0.24 *H, Total Protein 6.6, Albumin 2.7 L, Globulin 3.9, Albumin/Globulin Ratio 0.7 L, CBC w Diff NO MAN DIFF REQ, RBC 3.28 L, MCV 80.2 L, MCH 26.7 L, MCHC 33.3, RDW 15.1 H, MPV 9.9, Gran % 84.6 H, Lymphocytes % 6.2 L, Monocytes % 8.7, Eosinophils % 0, Basophils % 0.5, Absolute Granulocytes 12.9 H, Absolute Lymphocytes 0.9 L , Absolute Monocytes 1.3 H, Absolute Eosinophils 0, Absolute Basophils 0.1 Microbiology 12/22 114 UPPER RESP: Surveillance Culture - COMP 12/22 114 GI: Surveillance Culture - COMP Assessment/Plan Assessment/Plan Type 2 NSTEMI in the context of septic shock from urinary source. Right renal mass likely to be RCC. Hemodynamically stable today. Overall very conservative approach is desired by patient. since her prognosis appears to be > 6 months at this point, i would be inclined to start a low dose ASA for her (81 mg po daily). Continue telemetry? Yes
[2017-12-23 16:00] VITALS: BP 100/60
[2017-12-24] VITALS: BP 104/60
--- NOTE | 2017-12-24 07:11 | PN- Resident CRCU ---
Charles GuallpaaJeff 12/24/17 0710: Subjective HPI/CRCU Issues: 82 year old F presented to ED c/o sudden onset of chills that started the evening of 12/21, malaise and fatigue of 1 day duration. Patient is talkative, cooperative, does not look in acute distress. She is now maintaining BPs above 90/60 for the past 12 hours, with a MAP>65, blood cultures growing gram negative rods likely from urinary origin. Urine Cult positive for E. coli. CT abdomen on 08/23 showed a 13.5cm heterogeneously enhacing mass in L kidney consistent with RCC. 24 Hour Events: Pt slept comfortably throughout the whole night. complained about lack of BMs since admit Objective Vital Signs & I&O Last 8 Hrs of Vitals and I&O: Vital Signs Date Time Temp Pulse Resp B/P B/P Pulse O2 O2 Flow FiO2 Mean Ox Delivery Rate 12/24 0400 94 Room Air 07/ 0000 96 Room Air / 0000 98.8 84 20 104/60 96 Room Air / 2000 99 Room Air 12/23 1600 93 Nasal 2.0L Cannula 12/23 1600 98.6 70 16 100/60 98 Nasal 2.0L Cannula 12/23 1200 96 Nasal 2.0L Cannula Intake & Output 12/24 1600 /05 0800 07/05 0000 Intake Total 1091 1188 Output Total 410 250 Balance 681 938 Intake, IV 1091 668 Intake, Oral 520 Output, Urine 410 250 Laboratory Tests 12/24 12/23 0630 0820 Chemistry Sodium Pending Potassium Pending Chloride Pending Carbon Dioxide Pending Anion Gap Pending BUN Pending Creatinine Pending Glucose Pending Calcium Pending Phosphorus Pending Magnesium Pending Total Bilirubin Pending AST Pending ALT Pending Albumin Pending Hematology CBC w Diff NO MAN DIFF REQ MAN DIFF ORDERED WBC (4.8 - 10.8 /CUMM) 14.6 H 20.0 H RBC (4.20 - 5.40 /CUMM) 3.03 L 3.07 L Hgb (12.0 - 16.0 G/DL) 7.9 L 8.0 L Hct (37 - 47 %) 24.6 L 25.0 L MCV (81.0 - 99.0 FL) 81.2 81.4 MCH (27.0 - 31.0 PG) 26.0 L 25.9 L MCHC (33.0 - 37.0 G/DL) 32.0 L 31.9 L RDW (11.5 - 14.5 %) 15.2 H 15.1 H Plt Count (130 - 400 /CUMM) 347 373 MPV (7.4 - 10.4 FL) 10.0 9.7 Gran % (42.2 - 75.2 %) 75.8 H 86.6 H Lymphocytes % (20.5 - 51.1 %) 14.3 L 6.5 L Monocytes % (1.7 - 9.3 %) 8.7 6.4 Eosinophils % (0 - 5 %) 1.0 0.3 Basophils % (0.0 - 2.0 %) 0.2 0.2 Absolute Granulocytes (1.4 - 6.5 /CUMM) 11.0 H 17.3 H Segmented Neutrophils (42.2 - 75.2 %) 75 Band Neutrophils (0.0 - 5.0 %) 9 H Absolute Lymphocytes (1.2 - 3.4 /CUMM) 2.1 1.3 Lymphocytes (20.5 - 51.1 %) 7 L Monocytes (1.7 - 9.3 %) 7 Absolute Monocytes (0.10 - 0.60 /CUMM) 1.3 H 1.3 H Eosinophils (0 - 5.0 %) 1 Absolute Eosinophils (0.0 - 0.7 /CUMM) 0.1 0.1 Basophils (0.0 - 2.0 %) 1 Absolute Basophils (0.0 - 0.2 /CUMM) 0 0 Platelet Estimate (ADEQUATE) VERIFIED BY SMEAR Polychromasia 1+ Anisocytosis 1+ 07/04 0810 Chemistry Sodium (137 - 145 mmol/L) 140 Potassium (3.5 - 5.1 mmol/L) 3.9 Chloride (98 - 107 mmol/L) 114 H Carbon Dioxide (22 - 30 mmol/L) 16 L Anion Gap (5 - 16) 10 BUN (7 - 17 mg/dL) 15 Creatinine (0.5 - 1.0 mg/dL) 0.9 Estimated GFR (>60 ml/min) 60 Glucose (65 - 99 mg/dL) 65 Calcium (8.4 - 10.2 mg/dL) 7.8 L Phosphorus (2.5 - 4.5 mg/dL) 3.2 Magnesium (1.6 - 2.3 mg/dL) 1.7 Total Bilirubin (0.2 - 1.3 mg/dL) 0.1 L AST (14 - 36 U/L) 63 H ALT (9 - 52 U/L) 58 H Albumin (3.5 - 5.0 g/dL) 1.9 L Coagulation PT (9.4 - 12.5 SEC) 16.2 H INR (0.90 - 1.19) 1.48 H Exam General Appearance: no apparent distress, alert, awake, thin Head: atraumatic, normal appearance Neck: normal inspection, supple Respiratory: normal breath sounds, chest non-tender, no respiratory distress Cardiovascular: regular rate/rhythm Gastrointestinal: normal bowel sounds, soft Extremities: normal inspection Skin: intact, warm/dry Sepsis Skin Exam (color): Normal for Ethnicity Sepsis Peripheral Pulse Location: Dorsalis Pedis Sepsis Peripheral Pulse Exam: Normal Sepsis Cap Refill Exam: <2 Sec Current Medications: Current Medications Sig/Yuri Start time Last Medication Dose Route Stop Time Status Admin Acetaminophen 500 MG Q6P PRN 12/21 2300 AC PO Ceftriaxone Sodium 1,000 MG DAILY 12/23 1243 AC 12/23 IV 1400 Enoxaparin Sodium 40 MG DAILY 12/22 0900 AC 12/23 SC 1022 Lactated Ringer's 1,000 ML Q6H 12/23 0945 AC 12/24 IV 0026 Magnesium Oxide 400 MG DAILY 12/23 0900 AC 12/23 PO 1022 Pantoprazole Sodium 40 MG DAILY 12/22 0430 AC 12/23 IV 1022 Sodium Chloride 1,000 ML Q10H 12/21 2300 DC 12/23 IV 0711 Miscellaneous Findings: EXAMINATION: CT ABDOMEN AND PELVIS WITH CONTRAST IMPRESSION: 1. Large, heterogeneously enhancing mass of the yjk-ov-bbbjn pole the left kidney measuring up to 13.5 cm is consistent with renal cell carcinoma. No evidence of lymphadenopathy or distant metastasis. 2. Anasarca. The heterogeneous hepatic attenuation is likely due to hepatic venous congestion. 3. No evidence of abdominal abscess. 4. Pancolonic diverticulosis without diverticulitis. Impression/Plan Impression/Problem List Impression: Impression/Plan: 82 year old F with PMH kidney stones that presented to the ED with complains of sudden onset chills, malaise and fatigue of 1 day duration. Patient is talkative , cooperative, does not look in acute distress. Of note a 50 pound unintentional weight loss since last january. She is hypotensive, with a MAP of 65, blood cultures growing gram negative rods from urinary source. CT abdomen 12/22 showed 3.5cm heterogeneously enhacing mass in L kidney consistent with RCC. Problems: #Sepsis of urological origin #Elevated Troponin #L Renal Mass consistent with RCC Assesment and Plan VS- BP: 104/60, HR: 84, RR:20, T: 98.8, Total In&Out as of 09/26: 97465/827 Respiratory Patient is breathing comfortably, sat 94% on room air. Lungs are CTA B/L, no wheezes, crepitus or rhonchi heard. CXR shows no infiltrates or consolidation. Infection Pt presentation indicative of infection. Tmax of 103, now afebrile since 12/22, WBC 15.2 on admit ->12.9 ->31.6->20->14.6 latest; positive urianalysis indicates an infection of urinary origin. [place] [address]/827 since admission. Pt as of 12/24 has maintained her BP above 90/60. MAP has mantained over 65 over the last 24 hours and with improvement in renal function as evidenced by her Cr decrease from 1.1 -> 0.9 -> 0.7 and improving urinary output. Plan of a possible central line and pressor support if needed was discussed with the patient but was refused. Blood cultures grew E.coli, urine cult show E.coli. -Coverage switched ceftazidime to ceftriaxone (day #2) 1g IV daily -urine cult grew E.coli -BC 1/2 E. coli -Mantain MAP>60 Cardiac Pt. with elevated troponin on arrival. Trend: 0.24->4.76->3.81. Sharp increase/ decrease in the setting of sepsis might indicate a type II non-ST segment elevation CO; supply-demand mismatch. Patient has not complained of chest pain. EKG findings suggestive of LBBB, but in the absence of a baseline EKG, underlying CAD cannot be ruled out. -Cardio consulted -Echo pending - Hematological Patient has a stable Hb trend of 8.7->7.4->7.9 and maintaining with MCV of 81.2 on the latest am lab. CT abdomen showed a large, centrally necrotic mass of the mid-to lower pole of the left kidney, consistent with renal cell carcinoma, measures up to 10.5 cm transverse, 11.6 cm AP and 13.5 cm craniocaudal. No tumor invasion into the renal vein or into surrounding structures. PT/INR 16.2/1.48 have mantained from her baseline. ALT/AST: 63/58; Low albumin (1.9). Pt also has abnormal morphology of RBCs on PBS. These liver findings are consistent with both her underlying malignancy and subsequent 50 pound weight loss in the span of one year, and while her septic status might also be a factor explaining her liver lab abnormalities, the magnitude change is not as significant as how it would typically be seen after long periods of hypotension. -Mantain Hb > 8 Metabolic Hyponatremic on admit 132->139 latest am lab Hyperkalemic on admit 5.4 -> 4.0 latest am lab Phos slightly decreased 12/24 lab: 2.4 -Will continue to monitor -Phosphate powder 250 mg x5 started Alimentary Pt complained of no BMs during her hospital course, likely due to her NPO status since admission and lack of ambulation. -Started on miralax, docusate, senna PRN for constipation -Regular diet -Nutrition consult Neuro Patient is cooperative and talkative, AAOx3. DNR/DNI Problem List: 1. Sepsis 2. UTI (urinary tract infection) 3. Anemia 4. Elevated troponin 5. Renal mass, left Pain Ratin Plan DVT/Prophylaxis: mechanical, pharmacological Chandrakant Eden MD 12/24/17 0957: Attending MD Review Statement Attending Sign Off Attending Cosign Statement: I have: examined this patient, reviewed avalbl EMR data, personally reviewd images, discussd w/resident/PA/[employer], discussed mgmt plan w/vicki, discussed mgmt plan w/CM, discussed mgmt plan w/pt, agreed w/resident/PA/[employer], amended to note. Other Findings: Chandrakant Turner M.D. have examined this patient, reviewed available EMR data, personally reviewed images, discussed with resident/PA/[employer], discussed management plan with housestaff and nursing staff, discussed managment plan all of healthcare providers, discussed management plan with patient and/or family, agreed with resident/PA/[employer]. The past history and parts of the chart have been autopopulated. Impression 82 year old woman * RESOLVED - septic shock however decliend vasopressors - uti as source - E.Coli , L kidney mass consistent with RCC * troponinemia likely type 2 CO Plan -dc fluids, tolerating diet -DNR/DNI, declines central access and may wish to pursue conservative options given mass on left kidney consistent with RCC - declines further intervention -urology appreciated -cardiology consultation appreciated -maintain hgb >8 DVT prophylaxis at all times TTS 35 min DG to telemetry
[2017-12-24 07:41] LABS: ABSOLUTE BASOPHIL COUNT 0 /CUMM (0.0-0.2); ABSOLUTE EOSINOPHIL COUNT 0.1 /CUMM (0.0-0.7); ABSOLUTE LYMPH COUNT 2.1 /CUMM (1.2-3.4); ABSOLUTE MONOCYTE COUNT 1.3 /CUMM (0.10-0.60); BASOPHIL % 0.2 % (0.0-2.0); GRANULOCYTE % 75.8 % (42.2-75.2); HEMATOCRIT 24.6 % (37-47); MEAN CORPUSCULAR VOLUME 81.2 FL (81.0-99.0); PLATELET COUNT 347 /CUMM (130-400); RBC DISTRIBUTION WIDTH 15.2 % (11.5-14.5); RED BLOOD CELL CT 3.03 /CUMM (4.20-5.40); WHITE BLOOD CELL COUNT 14.6 /CUMM (4.8-10.8)
[2017-12-24 08:00] VITALS: BP 112/58
--- NOTE | 2017-12-24 11:08 | PN- Cardiology ---
Subjective Subjective: Patient is resting comfortably. Denies any chest pain, dyspnea, or palpitations. Objective Vital Signs and I&Os Vital Signs Date Time Temp Pulse Resp B/P B/P Pulse O2 O2 Flow FiO2 Mean Ox Delivery Rate 12/25 799 98.5 78 24 112/58 96 Room Air 12/24 0400 94 Room Air 12/24 0000 96 Room Air 12/24 0000 98.8 84 20 104/60 96 Room Air 12/23 2000 99 Room Air 12/23 1600 93 Nasal 2.0L Cannula 12/23 1600 98.6 70 16 100/60 98 Nasal 2.0L Cannula 12/23 1200 96 Nasal 2.0L Cannula Intake & Output 12/24 1600 12/24 0800 12/24 0000 12/23 1600 12/23 0800 12/23 0000 Intake Total 1091 1188 1740 1550 1820 Output Total 410 250 260 284 265 Balance 920 910 6028 1266 1555 Intake, IV 3290 113 0328 1550 1700 Intake, Oral 520 540 120 Output, Urine 410 250 260 284 265 Physical Exam: General: no apparent distress. Alert. Eyes: No obvious scleral icterus. HEENT: No jugular venous distention or abnormal jugular venous pulsations. Cardiovascular: Normal intensity S1/S2. Regular Respiratory: Lungs clear to auscultation bilaterally. Abdomen: Soft, nontender with no guarding or rebound tenderness. Musculoskeletal: No clubbing or cyanosis noted Skin: warm Neurologic: No gross focal deficits noted. Current Medications: Current Medications Sig/Yuri Start time Last Medication Dose Route Stop Time Status Admin Acetaminophen 500 MG Q6P PRN 12/21 2300 AC PO Aspirin Buffered 81 MG DAILY 12/24 1130 AC PO Atorvastatin Calcium 40 MG 1700 12/24 1700 AC PO Ceftriaxone Sodium 1,000 MG DAILY 12/23 1243 AC 12/24 IV 0818 Docusate Sodium 100 MG DAILY NEEDED PRN 12/24 0830 AC PO Enoxaparin Sodium 40 MG DAILY 12/22 09 AC 12/24 SC 0844 Lactated Ringer's 1,000 ML Q10H 12/24 09 AC IV Lactated Ringer's 1,000 ML Q6H 12/23 0945 DC 12/24 IV 0817 Latanoprost 1 GTT AT BEDTIME 12/24 2100 AC OPH Magnesium Oxide 400 MG DAILY 12/23 0900 AC 12/24 PO 0817 Metoprolol Tartrate 12.5 MG BID 12/24 1130 AC PO Pantoprazole Sodium 40 MG DAILY 12/22 0430 AC 12/24 IV 0817 Phosphate 250 MG PC AND AT BEDTIME 12/24 0900 AC PO 12/25 0901 Polyethylene Glycol 17 GM DAILY PRN 12/24 829 AC PO Senna 187 MG DAILY PRN 12/24 829 AC PO Results Last 48 Hrs of Labs/Mics: Laboratory Tests 12/24/17 0630: Anion Gap 8, Estimated GFR > 60, Glucose 93, Calcium 8.5, Phosphorus 2.4 L, Magnesium 1.7, Total Bilirubin < 0.1 L, AST 41 H, ALT 47, Albumin 1.9 L, CBC w Diff NO MAN DIFF REQ, RBC 3.03 L, MCV 81.2, MCH 26.0 L, MCHC 32.0 L, RDW 15.2 H, MPV 10.0, Gran % 75.8 H, Lymphocytes % 14.3 L, Monocytes % 8.7, Eosinophils % 1.0, Basophils % 0.2, Absolute Granulocytes 11.0 H, Absolute Lymphocytes 2.1, Absolute Monocytes 1.3 H, Absolute Eosinophils 0.1, Absolute Basophils 0 12/23/17 0820: CBC w Diff MAN DIFF ORDERED, RBC 3.07 L, MCV 81.4, MCH 25.9 L, MCHC 31.9 L, RDW 15.1 H, MPV 9.7, Gran % 86.6 H, Lymphocytes % 6.5 L, Monocytes % 6.4, Eosinophils % 0.3, Basophils % 0.2, Absolute Granulocytes 17.3 H, Segmented Neutrophils 75, Band Neutrophils 9 H, Absolute Lymphocytes 1.3, Lymphocytes 7 L, Monocytes 7, Absolute Monocytes 1.3 H, Eosinophils 1, Absolute Eosinophils 0.1, Basophils 1, Absolute Basophils 0, Platelet Estimate VERIFIED BY SMEAR, Polychromasia 1+, Anisocytosis 1+ 12/23/17 0810: Anion Gap 10, Estimated GFR 60, Glucose 65, Calcium 7.8 L, Phosphorus 3.2, Magnesium 1.7, Total Bilirubin 0.1 L, AST 63 H, ALT 58 H, Albumin 1.9 L, PT 16.2 H, INR 1.48 H Recent Imaging Studies: Telemetry tracings were personally reviewed and shows sinus rhythm/sinus tachycardia with a short SVT run Echocardiogram Normal LV chamber size and wall thickness. The estimated LVEF is approximately 45%. There is basal to mid anteroseptal wall akinesis. There is moderate mitral regurgitation. There is mild aortic insufficiency. There is moderate tricuspid regurgitation. The estimated PA systolic pressure is 38 mmHg. Assessment/Plan Assessment/Plan 1. Urosepsis with hypotension 2. Type II myocardial infarction with ejection fraction of 45% by echo 3. Right renal mass likely RCC; patient elects for conservative approach 4. Nonsustained supraventricular tachycardia burst on telemetry 5. Anemia The patient is now hemodynamically stable. Given the type II myocardial infarction with mild LV dysfunction and some nonsustained tachycardia on telemetry we are planning to initiate low-dose beta-lora therapy as blood pressure tolerates. We will also plan to initiate on aspirin and statin therapy as she elects for medical therapy of her myocardial infarction. Will likely be a candidate for low-dose CEDRICK inhibitor therapy if blood pressure continues to remain stable. Monitor hemoglobin while on aspirin therapy. Antibiotics per the medical team. Igor Chávez MD [facility] Continue telemetry? Yes
--- NOTE | 2017-12-24 12:00 | Cons- Urology ---
General Information and HPI Consulting Request Date of Consult: 12/22/17 Requested By: Chandrakant Eden MD Reason for Consult: left renal mass: sepsis Source of Information: patient, family, old records Exam Limitations: no limitations History of Present Illness: 82-year-old very pleasant lady with no significant past medical hx other than a remote history of cholelithiasis status post cholecystectomy, and ovarian cyst( ?), presented to [facility] ED for evaluation of sudden onset of chills and shivering that started this evening. She denies any recent URI, cough/sob, headache/neck rigidity, abdominal pain,nausea/vomiting, dysuria or diarrhea. No sick contacts or recent travel. She does however states that in the past few days, her urine has looked slightly different. Family members who were at bedside also state that the patient has not been herself for the past few days, with noticeable fatigue. She endorses a vague remote history of "kidney stones" and UTIs. EPS records indicate an E coli UTI in 2013. Other associated symptoms include an unintentional 50 pound weight loss within 1 year which is also accompanied by decreased appetite. She denies having had any colonoscopy in her lifetime. Allergies/Medications Allergies: Coded Allergies: No Known Allergies (12/21/17) Home Med List: Aspirin (Ecotrin*) 81 MG TABLET.DR 81 MG PO DAILY heart Atorvastatin Calcium 40 MG TABLET 40 MG PO 1700 heart Ciprofloxacin HCl (Cipro) 500 MG TABLET 1 TAB PO BID uti Latanoprost 0.005 % DROPS 1 GTT OPH AT BEDTIME eye Metoprolol Tartrate 25 MG TABLET 0.25 TAB PO BID heart Omeprazole 20 MG CAPSULE.DR 1 CAP PO DAILY acid reflux Polyethylene Glycol 3350 (Miralax) 17 GRAM/DOSE POWDER 17 GM PO DAILY PRN CONSTIPATION Current Medications: Current Medications Sig/Yuri Start time Last Medication Dose Route Stop Time Status Admin Acetaminophen 500 MG Q6P PRN 12/21 2300 AC PO Aspirin Buffered 81 MG DAILY 12/24 1130 AC PO Atorvastatin Calcium 40 MG 1700 12/24 1700 AC PO Ceftriaxone Sodium 1,000 MG DAILY 12/23 1243 AC 12/24 IV 0818 Docusate Sodium 100 MG DAILY NEEDED PRN 12/24 0830 AC PO Enoxaparin Sodium 40 MG DAILY 12/22 0900 AC 12/24 SC 0844 Lactated Ringer's 1,000 ML Q10H 12/24 0900 AC IV Lactated Ringer's 1,000 ML Q6H 12/23 0945 DC 12/24 IV 0817 Latanoprost 1 GTT AT BEDTIME 12/24 2100 AC OPH Magnesium Oxide 400 MG DAILY 12/23 0900 AC 12/24 PO 0817 Metoprolol Tartrate 12.5 MG BID 12/24 1130 AC PO Pantoprazole Sodium 40 MG DAILY 12/22 0430 AC 12/24 IV 0817 Phosphate 250 MG PC AND AT BEDTIME 12/24 0900 AC PO 12/25 0901 Polyethylene Glycol 17 GM DAILY PRN 12/24 0830 AC PO Senna 187 MG DAILY PRN 12/24 0830 AC PO Past History Medical History Gastrointestinal: GERD, PEPTIC ULCER Renal: KIDNEY STONES Surgical History Pertinent Surgical History: cholecystectomy, partial oophorectomy Psychosocial History Where Do You Live? Home Smoking Status: Unknown If Ever Smoked ETOH Use: denies use Illicit Drug Use: denies illicit drug use Functional Ability ADLs Independent: dressing, eating, toileting, bathing. Ambulation: independent IADLs Independent: shopping, housework, finances, food prep, telephone, transportation , medication admin. Employment History Employment: Retired Retired? yes Review of Systems Review of Systems Constitutional: Reports: weakness. EENTM: Denies: no symptoms. Cardiovascular: Denies: no symptoms. Respiratory: Denies: no symptoms. Genitourinary: Denies: no symptoms. Skin: Denies: no symptoms. Exam & Diagnostic Data Vital Signs and I&O Vital Signs Date Time Temp Pulse Resp B/P B/P Pulse O2 O2 Flow FiO2 Mean Ox Delivery Rate 12/25 799 98.5 78 24 112/58 96 Room Air 12/24 0400 94 Room Air 12/24 0000 96 Room Air 12/24 0000 98.8 84 20 104/60 96 Room Air 12/23 2000 99 Room Air 12/23 1600 93 Nasal 2.0L Cannula 12/23 1600 98.6 70 16 100/60 98 Nasal 2.0L Cannula 12/23 1200 96 Nasal 2.0L Cannula Intake & Output 12/24 1600 12/24 0800 07/ 0000 / 1600 12/23 0800 12/23 0000 Intake Total 1091 1188 1740 1550 1820 Output Total 410 250 260 284 265 Balance 010 206 6280 1266 1555 Intake, IV 6756 087 7333 1550 1700 Intake, Oral 520 540 120 Output, Urine 410 250 260 284 265 Physical Exam General Appearance: well developed/nourished, thin Head: atraumatic Eyes: Bilateral: normal appearance. Respiratory: normal breath sounds Cardiovascular: regular rate/rhythm Gastrointestinal: normal bowel sounds, soft Back: no vertebral tenderness Extremities: normal inspection Skin: intact, normal color Last 24 Hours of Labs: Laboratory Tests 12/24 629 Chemistry Sodium (137 - 145 mmol/L) 139 Potassium (3.5 - 5.1 mmol/L) 4.0 Chloride (98 - 107 mmol/L) 112 H Carbon Dioxide (22 - 30 mmol/L) 19 L Anion Gap (5 - 16) 8 BUN (7 - 17 mg/dL) 13 Creatinine (0.5 - 1.0 mg/dL) 0.7 Estimated GFR (>60 ml/min) > 60 Glucose (65 - 99 mg/dL) 93 Calcium (8.4 - 10.2 mg/dL) 8.5 Phosphorus (2.5 - 4.5 mg/dL) 2.4 L Magnesium (1.6 - 2.3 mg/dL) 1.7 Total Bilirubin (0.2 - 1.3 mg/dL) < 0.1 L AST (14 - 36 U/L) 41 H ALT (9 - 52 U/L) 47 Albumin (3.5 - 5.0 g/dL) 1.9 L Hematology CBC w Diff NO MAN DIFF REQ WBC (4.8 - 10.8 /CUMM) 14.6 H RBC (4.20 - 5.40 /CUMM) 3.03 L Hgb (12.0 - 16.0 G/DL) 7.9 L Hct (37 - 47 %) 24.6 L MCV (81.0 - 99.0 FL) 81.2 MCH (27.0 - 31.0 PG) 26.0 L MCHC (33.0 - 37.0 G/DL) 32.0 L RDW (11.5 - 14.5 %) 15.2 H Plt Count (130 - 400 /CUMM) 347 MPV (7.4 - 10.4 FL) 10.0 Gran % (42.2 - 75.2 %) 75.8 H Lymphocytes % (20.5 - 51.1 %) 14.3 L Monocytes % (1.7 - 9.3 %) 8.7 Eosinophils % (0 - 5 %) 1.0 Basophils % (0.0 - 2.0 %) 0.2 Absolute Granulocytes (1.4 - 6.5 /CUMM) 11.0 H Absolute Lymphocytes (1.2 - 3.4 /CUMM) 2.1 Absolute Monocytes (0.10 - 0.60 /CUMM) 1.3 H Absolute Eosinophils (0.0 - 0.7 /CUMM) 0.1 Absolute Basophils (0.0 - 0.2 /CUMM) 0 Imaging Results: PATIENT: DIANE GARCIA PRESENT AGE: 82 PATIENT ACCOUNT NO: [id number] : 33 LOCATION: [facility] ORDERING PHYSICIAN: Miriam Barton MD SERVICE DATE: 12/22/17- EXAM TYPE: CAT - CT ABD & PELVIS W IV CONTRAST EXAMINATION: CT ABDOMEN AND PELVIS WITH CONTRAST CLINICAL INFORMATION: Sepsis of urological origin. Evaluate for intra-abdominal abscess, perinephric abscess. COMPARISON: None TECHNIQUE: Multidetector volumetric imaging was performed of the abdomen and pelvis following IV administration of 95 mL of Optiray 320 intravenous contrast. Sagittal and coronal reformatted images were obtained on the technologist's workstation. DLP: 291 mGy-cm FINDINGS: LUNG BASES: Small bilateral pleural effusions produce compressive atelectasis of lower lobes. LIVER, GALLBLADDER, AND BILIARY TREE: There is hepatomegaly. Liver is diffusely heterogeneous, likely from hepatic venous congestion. No focal liver lesions are seen. No hepatic abscess. Gallbladder is surgically absent. No intrahepatic or extrahepatic bile duct dilatation. PANCREAS: The pancreatic tail is anterosuperiorly displaced by the left renal mass. No focal pancreatic lesion. SPLEEN: Unremarkable. ADRENAL GLANDS: Unremarkable. KIDNEYS AND URETERS: The right kidney is normal. A large, heterogeneously enhancing, centrally necrotic mass of the djk-rx-smaia pole of the left kidney, consistent with renal cell carcinoma, measures up to 10.5 cm transverse, 11.6 cm AP and 13.5 cm craniocaudal. The tumor, which is confined to Gerota's fascia, exerts mass effect upon the renal sinus fat. No tumor invasion into the renal vein or into surrounding structures. BLADDER: The bladder is decompressed by a Echevarria catheter. GASTROINTESTINAL TRACT: Stomach is underdistended. Bowel loops are normal in caliber. Pancolonic diverticulosis. However, no focal bowel wall thickening or focal fat stranding to suggest acute diverticulitis. Small amount of ascitic fluid is present within the abdomen. No pneumoperitoneum. ABDOMINAL WALL: Mild edema in subcutaneous tissues of the abdominal wall, flanks, back and thighs. No focal fluid collection. LYMPH NODES: No pathologic sized lymph nodes within the abdomen or pelvis. VASCULAR: Mild atherosclerosis of the abdominal aorta without aneurysm. PELVIC VISCERA: 2 cm calcified uterine leiomyoma. Small amount of free fluid is present in the pelvis. No abscess. OSSEOUS STRUCTURES: Bones appear diffusely osteopenic. L4-L5 facet osteoarthritis and degenerative disc disease with 0.8 cm (approximately 25%) of anterolisthesis of L4 on L5. No aggressive osseous lesions. IMPRESSION: 1. Large, heterogeneously enhancing mass of the bot-eh-clayb pole the left kidney measuring up to 13.5 cm is consistent with renal cell carcinoma. No evidence of lymphadenopathy or distant metastasis. 2. Anasarca. The heterogeneous hepatic attenuation is likely due to hepatic venous congestion. 3. No evidence of abdominal abscess. 4. Pancolonic diverticulosis without diverticulitis. DICTATED BY: Gabo Petersen MD DATE/TIME DICTATED:12/22/171037 CAS[place] FLOOR PERSON:SHELIA DATE/TIME TRANSCRIBED:12/22/171037 CONFIDENTIAL, DO NOT COPY WITHOUT APPROPRIATE AUTHORIZATION. <Electronically signed in Other Vendor System> SIGNED BY: Gabo Petersen MD 12/22/17 1058 Assessment/Plan Assessment/Plan large and rapid growing left renal mass/pt refuses nephrectomy-further surgical intervention-as stated with family present. Copies To: Clayton Venegas MD Consult Acknowledgment - Thank you for your consult request. Attending MD Review Statement Attending Statement Attending MD Statement: examined this patient, discuss w/resident/PA/[employer] Attending Assessment/Plan: pt with left renal mass (large): pt declined surgical intervention.
[2017-12-24 16:00] VITALS: BP 110/60
[2017-12-24 23:15] VITALS: BP 102/64
--- NOTE | 2017-12-25 06:55 | PN- Housestaff ---
Subjective Follow-up For: sepsis of UTI origin Complaints: no complaints Tele-Events Since Last Visit: NSR 64-, bbb Subjective: Pt reports chills last night/no acute events Review of Systems Constitutional: Reports: see HPI. Objective Last 24 Hrs of Vital Signs/I&O Vital Signs Date Time Temp Pulse Resp B/P B/P Pulse O2 O2 Flow FiO2 Mean Ox Delivery Rate 12/25 1445 99.7 88 22 122/58 98 Room Air / 0840 70 102/50 12/25 0800 99 Nasal 1.0L Cannula 12/25 0721 98.8 70 20 102/50 97 Room Air / 0000 Nasal 1.0L Cannula 12/24 2315 99.2 89 24 102/64 95 07/05 2113 99.9 84 20 124/50 Intake & Output 12/25 1600 12/25 0800 07/ 0000 Intake Total 430 120 220 Output Total 400 600 359 Balance 30 -480 -139 Intake, IV 30 Intake, Oral 400 120 220 Output, Urine 400 600 359 Patient 158 lb Weight Physical Exam General Appearance: Alert, Oriented X3, Cooperative Skin: No Rashes Skin Temp/Moisture Exam: Cool/Dry Sepsis Skin Exam (color): Normal for Ethnicity HEENT: Atraumatic Cardiovascular: Regular Rate, Normal S1, Normal S2, No Murmurs Lungs: Clear to Auscultation, Normal Air Movement Abdomen: Normal Bowel Sounds, Soft, No Tenderness Neurological: Normal Speech, Strength at 5/5 X4 Ext Extremities: No Clubbing, No Cyanosis, No Edema Assessment/Plan Assessment: The patient is a 82 year old F who presented with a patient w/ a chief complaint of chills & shivering whichstarted on evening of December 21. no significant pmhx. a remote history of cholelithiasis status post cholecystectomy, and ovarian cyst. She denied any recent URI, cough/sob, headache/neck rigidity, abdominal pain, nausea/vomiting, dysuria or diarrhea. VS : Temp 98.8, Pulse 70, RR 20, BP 102/50, 97% on RA. Pertinent labs: WBCs 14.6, Hgb 7.9, Hct 24.6, Plt 347. BUN 11, Cr 0.7. Tele: NSR. HR 64- Problem list: 1. Urosepsis with hypotension 2. Type II myocardial infarction with ejection fraction of 45% by echo 3. Right renal mass likely RCC; patient elects for conservative approach 4. Nonsustained supraventricular tachycardia burst on telemetry 5. Anemia A & P: -Possible D/C tomorrow. -Continue metoprolol, aspirin, statin -Hold ACEi, due to bp on low end -repeat Echo as out pt -RCC: f/u with dr. chao -complete 14 days of cipro for uti after d/c -guaiac test for gi bleed - Problem List: 1. Sepsis 2. UTI (urinary tract infection) 3. Elevated troponin 4. Renal cell carcinoma 5. Anemia 6. Renal mass, left Pain Ratin Pain Location: none Pain Goal: Remain pain free Pain Plan: remain pain free Tomorrow's Labs & Rationales: cbc
[2017-12-25 07:21] VITALS: BP 102/50
--- NOTE | 2017-12-25 12:11 | PN- Cardiology ---
Subjective Subjective: She feels well today and offers no complaints. She is anxious to go home. She reports ambulating without difficulty. Objective Vital Signs and I&Os Vital Signs Date Time Temp Pulse Resp B/P B/P Pulse O2 O2 Flow FiO2 Mean Ox Delivery Rate 12/26 799 99 Nasal 1.0L Cannula 12/25 720 98.8 70 20 102/50 97 Room Air 12/25 0000 Nasal 1.0L Cannula 12/24 2315 99.2 89 24 102/64 95 12/24 2113 99.9 84 20 124/50 12/24 1600 98.8 80 20 110/60 93 Room Air Intake & Output 12/25 1600 12/25 0812/25 0000 12/24 1600 12/24 0812/24 0000 Intake Total 120 083 541 8390 1188 Output Total 600 359 550 410 250 Balance -480 -139 330 681 938 Intake, IV 400 1091 668 Intake, Oral 120 220 480 520 Output, Urine 600 359 550 410 250 Patient 158 lb Weight Physical Exam: General: no apparent distress. Alert. Eyes: No obvious scleral icterus. HEENT: No jugular venous distention or abnormal jugular venous pulsations. Cardiovascular: Normal intensity S1/S2. Regular Respiratory: Lungs clear to auscultation bilaterally. Abdomen: Soft, nontender with no guarding or rebound tenderness. Musculoskeletal: No clubbing or cyanosis noted Skin: warm Neurologic: No gross focal deficits noted. Current Medications: Current Medications Sig/Yuri Start time Last Medication Dose Route Stop Time Status Admin Acetaminophen 1,000 MG ONCE ONE 12/24 2300 DC 12/24 N/A 1 UNIT IV 12/24 2314 2342 Acetaminophen 500 MG Q6P PRN 12/21 2300 AC PO Aspirin Buffered 81 MG DAILY 12/24 1130 AC 12/25 PO 0821 Atorvastatin Calcium 40 MG 1700 12/24 1700 AC 12/24 PO 1649 Ceftriaxone Sodium 1,000 MG DAILY 12/23 1243 AC 12/25 IV 0819 Docusate Sodium 100 MG DAILY NEEDED PRN 12/24 0830 AC 12/24 PO 1306 Enoxaparin Sodium 40 MG DAILY 12/22 0900 AC 12/25 SC 0819 Lactated Ringer's 1,000 ML Q10H 12/24 0900 DC IV Latanoprost 1 GTT AT BEDTIME 12/24 2100 AC 12/24 OPH 2120 Magnesium Oxide 400 MG DAILY 12/23 0900 AC 12/25 PO 0822 Metoprolol Tartrate 6.25 MG BID 12/24 2100 AC 12/24 PO 2113 Metoprolol Tartrate 12.5 MG BID 12/24 1130 DC PO Pantoprazole Sodium 40 MG DAILY 12/22 0430 AC 12/25 IV 0818 Phosphate 250 MG PC AND AT BEDTIME 12/24 0900 DC 12/25 PO 12/25 0901 0821 Polyethylene Glycol 17 GM DAILY PRN 12/24 08 AC PO Senna 187 MG DAILY PRN 12/24 08 AC PO Results Last 48 Hrs of Labs/Mics: Laboratory Tests 12/25/17 0619: Anion Gap 7, Estimated GFR > 60, Glucose 89, Calcium 8.8, Phosphorus 2.8, Magnesium 1.6, Total Bilirubin 0.1 L, AST 40 H, ALT 45, Albumin 1.9 L 12/24/1730: Anion Gap 8, Estimated GFR > 60, Glucose 93, Calcium 8.5, Phosphorus 2.4 L, Magnesium 1.7, Total Bilirubin < 0.1 L, AST 41 H, ALT 47, Albumin 1.9 L, CBC w Diff NO MAN DIFF REQ, RBC 3.03 L, MCV 81.2, MCH 26.0 L, MCHC 32.0 L, RDW 15.2 H, MPV 10.0, Gran % 75.8 H, Lymphocytes % 14.3 L, Monocytes % 8.7, Eosinophils % 1.0, Basophils % 0.2, Absolute Granulocytes 11.0 H, Absolute Lymphocytes 2.1, Absolute Monocytes 1.3 H, Absolute Eosinophils 0.1, Absolute Basophils 0 Recent Imaging Studies: Telemetry tracings are personally reviewed and shows sinus rhythm and sinus tachycardia with significant artifact Assessment/Plan Assessment/Plan 1. Urosepsis with hypotension 2. Type II myocardial infarction with ejection fraction of 45% by echo 3. Right renal mass likely RCC; patient elects for conservative approach 4. Nonsustained supraventricular tachycardia burst on telemetry 5. Anemia Patient feeling well. As her blood pressure is borderline would continue on the metoprolol but would not add CEDRICK inhibitor therapy at this time. We will plan for repeat echocardiogram as an outpatient in the future and hopefully we will see normalization of ejection fraction. Continue aspirin and statin therapy. Minimal change in hemoglobin compared with yesterday. Antibiotics per the medical team. Igor Chávez MD FAC Continue telemetry? No
[2017-12-25] MEDS ORDERED: ATORVASTATIN CA40 M1 PO (12:25)
[2017-12-25] MEDS ORDERED: OMEPRAZOLE20 M2 PO (12:25)
[2017-12-25] MEDS ORDERED: ASPIRIN EC81 M1 PO (12:25)
[2017-12-25] MEDS ORDERED: METOPROLOL TART25 M1 PO (12:25)
[2017-12-25] MEDS ORDERED: LATANOPROST2.5 ML OPH (12:26)
[2017-12-25] MEDS ORDERED: MIRALAX119 GM PO (12:28)
[2017-12-25] MEDS ORDERED: CIPRO500 M1 PO (12:30)
--- NOTE | 2017-12-25 13:55 | Discharge Summary ---
Visit Information Visit Dates Admission Date: 12/21/17 Discharge Date: 12/28/2017 Hospital Course Course Attending Physician: Marivel Middleton MD Primary Care Physician: Boo RATLIFF,[place] Hospital Course: The patient is a 82 year old F who presented with a patient w/ a chief complaint of chills & shivering whichstarted on evening of December 21. no significant pmhx. a remote history of cholelithiasis status post cholecystectomy, and ovarian cyst. She denied any recent URI, cough/sob, headache/neck rigidity, abdominal pain, nausea/vomiting, dysuria or diarrhea. No sick contacts or recent travel. She states that in the past few days, her urine has looked slightly different. Family members who were at bedside also state that the patient has not been herself for the past few days, with noticeable fatigue. She endorses a vague remote history of "kidney stones" and UTIs. [facility] records indicate an E coli UTI in 2013. Other associated symptoms include an unintentional 50 pound weight loss within 1 year which is also accompanied by decreased appetite. She stated she never a colonoscopy. Review of system is negative for any chest pain, palpitation, shortness of breath, dizziness,orthopnea, lower extremity edema, focal neurological deficits, or muscle aches. At baseline, she reports that she is independent with activities of daily living and other than antacids for heartburn, she takes no other meds. In 2017, she had an echocardiogram which showed a normal EF with no wall motion abnormalities or significant valvular pathologies. Vitals on admission: Temp 103, HR 112, RR 18, BP 113/54, 95% on RA. P/E on admission: General Appearance Alert, Oriented X3, Cooperative, No Acute Distress Skin No Significant Lesion, chow angiomas noted on back area Skin Temp/Moisture Exam: Hot/Dry Sepsis Skin Exam (color): Normal for Ethnicity HEENT Atraumatic, PERRLA, slightly dry oral mucosa Neck Supple, No JVD Lymphatic Cervical nl Cardiovascular Regular Rate, Normal S1, Normal S2 Lungs Clear to Auscultation, Normal Air Movement Abdomen Normal Bowel Sounds, Soft, No Tenderness Neurological Normal Speech, Strength at 5/5 X4 Ext, Sensation Intact Extremities No Clubbing, No Cyanosis, No Edema, Normal Pulses Vascular Pulses Symmetrical Sepsis Peripheral Pulse Location: Radial Sepsis Peripheral Pulse Exam: Normal Sepsis Cap Refill Exam: <2 Sec Last 24 Hrs of Labs/Ovidio: Lactic Acid 2.8 H, UA: Urine Color BLDY H, Urine Clarity TURBD H, Urine pH 6.0, Ur Specific [place] 1.025, Urine Protein >=300 H, Urine Ketones TRACE H, Urine Nitrite POS H, Urine Bilirubin NEG@ICTO, Urine Urobilinogen 2.0 H, Ur Leukocyte Esterase LARGE H, Ur Microscopic SEDIMENT EXAMINED, Urine RBC PACKD H, Urine WBC PACKD H, Ur Epithelial Cells FEW, Urine Bacteria MANY H, Micro UA Comment MORE INFO: H, Urine Hemoglobin LARGE H, Urine Glucose NEG CBC: WBC 15.2, Hg 8.7, Hct: 26.3, Plt 512. BEP: Na 132, K 5.4, Cl 98, Bicarb 26, BUN 15, Cr 0.9. AG 8 EKG Results RBB CXR: Unremarkable Impression and plan on admission:Sepsis of urological origin as was evident by a temperature of 103, heart rate of 129, leukocytosis and a positive urinalysis suggestive of infection. This is not severe sepsis, but iatrogenic induced hypotension due to the metoprolol 5mg IV administered, supported by labs. * Elevated troponins:This is Type 2 AR most likely secondary to supply demand mismatch in the context of sepsis and anemia, as pt has no CP & troponins mildly elevated. * Hypotension. Iatrogenic 2/2 to Metoprolol IV * Hyperkalemia * Hyponatremia * Anemia: last H&H was in 2010. The MCV of 81 is indicative of microcytic anemia. CRC is highly probable. * Thrombocytosis. Possible secondary to sepsis. Plan upon admission: Cardiology and urology were on board. -Admitted to ICU for close monitoring -Aggressive IV fluids -s/p ceftaz and vanc. No recent urologic instrumentation to suggest continued coverage need for MRSA. Ceftriaxone 1 g daily for UTI to cover for the most common gram negative rods pathogen -trend troponins and EKG 2 -Echocardiogram -Follow-up urine and blood cultures -urine lytes to assess the hyponatremia. -iron studies -CBC to trend leukocytosis -DVT px:Enoxaparin -Code status: DNRI/DNI Course: In the ICU, she had no acute events. Patient was breathing comfortably, sat 99% with 4L on nasal cannula. Lungs were CTA B/L, no wheezes, crepitus or rhonchi heard. The goal was to maintain MAP of >60. THe CXR shows no infiltrates or consolidation. Her Blood cultures grew E.coli, urine cult show E.coli. Coverage switched ceftazidime to ceftriaxone 1g IV daily On 12/22 her troponin value went up to 4.76 from 0.16. EKG revealed incomplete left bundle branch block, and nonspecific ST changes in anterior leads. She was completely asymptomatic at the time. Blood pressure continued to be on the lower side systolic 70s, map around 60s. Given her sepsis, this change was most likely attributed to type II AR. Discussed with the wafer cutter, if heparin needs to be initiated; and deferred the decision for later since it appeared to be type II AR in her case. Card recs to continue metoprolol, aspirin and statin, but hold CEDRICK inhibitor therapy at this time. She duncan have repeat echocardiogram as an outpatient. Patient was transferred to floor on 12/27 with telemetry discontinued. Patient was stable upon discharge and was advised to complete 14 days of ciprofloxacin at the time of discharge. Allergies: Coded Allergies: No Known Allergies (12/21/17) Pertinent Lab Results: SERVICE DATE: 12/21/17 EXAM TYPE: RAD - XRY-PORTABLE CHEST XRAY IMPRESSION: Unremarkable chest exam. SERVICE DATE: 12/21/17 EXAM TYPE: CARD - ECHOCARDIOGRAM CONCLUSIONS Normal LV chamber size and wall thickness. The estimated LVEF is approximately 45%. There is basal to mid anteroseptal wall akinesis. There is moderate mitral regurgitation. There is mild aortic insufficiency. There is moderate tricuspid regurgitation. The estimated PA systolic pressure is 38 mmHg. Merritt Lopes M.D. SERVICE DATE: 12/22/17- EXAM TYPE: CAT - CT ABD & PELVIS W IV CONTRAST IMPRESSION: 1. Large, heterogeneously enhancing mass of the [id number] pole the left kidney measuring up to 13.5 cm is consistent with renal cell carcinoma. No evidence of lymphadenopathy or distant metastasis. 2. Anasarca. The heterogeneous hepatic attenuation is likely due to hepatic venous congestion. 3. No evidence of abdominal abscess. 4. Pancolonic diverticulosis without diverticulitis. Disposition Summary Disposition Principal Diagnosis: 1. Sepsis of urologic origin, resolved 2. Left renal mass; likely secondary to renal cell carcinoma, no renal biopsy done 3. Type II myocardial infarction myocardial infarction. Cardiomyopathy with ejection fraction of 35%. 4. Anemia; likely secondary to chronic disease 4. Episodes of nonsustained ventricular tachycardia on telemetry. Additional Diagnosis: as above Discharge Disposition: SNF Discharge Instructions General Discharge Information Code Status: Do Not Resucitate/Intubat Patient's Diet: TOLERATED Patient's Activity: as tolerated Follow-Up Instructions/Appts: Please follow-up with your primary care provider/urologist/wafer cutter #Please make an appointment with the oncologist Benito Collazo [phone]. Medications at Discharge Discharge Medications: Start taking the following new medications: Metoprolol Tartrate (Metoprolol Tartrate) 25 MG TABLET 0.25 Tablet ORAL TWICE DAILY Qty = 15 No Refills Atorvastatin Calcium (Atorvastatin Calcium) 40 MG TABLET 40 Milligram ORAL 5 PM Qty = 30 No Refills Comments: Last Taken:12/24/17 Time:1700 Aspirin (Ecotrin*) 81 MG TABLET. 81 Milligram ORAL DAILY Qty = 30 No Refills Comments: Last Taken:12/25/17 Time:0900 Latanoprost (Latanoprost) 0.005 % DROPS 1 Drop In the eye AT BEDTIME Qty = 30 No Refills Comments: Last Taken:12/24/17 Time:2200 Polyethylene Glycol 3350 (Miralax) 17 GRAM/DOSE POWDER 17 Gram ORAL DAILY as needed for CONSTIPATION Qty = 30 No Refills Omeprazole (Omeprazole) 20 MG CAPSULE. 1 Capsule ORAL DAILY Qty = 30 No Refills Comments: Last Taken:12/25/17 GIVEN IV Time:0900 Ciprofloxacin HCl (Cipro) 500 MG TABLET 1 Tablet ORAL TWICE DAILY Qty = 22 No Refills Comments: Last Taken:12/25/17 GIVEN IV Time:0900 Copies To: Boo RATLIFF,Daniel
--- NOTE | 2017-12-25 14:20 | PN- Att Addend ---
Attending Addendum Attending Brief Note Patient seen and examined. ICU notes reviewed. I had a detailed conversation with the patient and her son. She is currently resting comfortably. She is complaining of some chills. Denies nausea. Denies vomiting. Denies abdominal pain. She is very eager to go home. Son however states that patient lives alone and currently does not have any assistance available [id number] at home. Vital Signs Date Time Temp Pulse Resp B/P B/P Pulse O2 O2 Flow FiO2 Mean Ox Delivery Rate 12/25 0800 99 Nasal 1.0L Cannula 12/25 0721 98.8 70 20 102/50 97 Room Air 12/25 0000 Nasal 1.0L Cannula 12/24 2315 99.2 89 24 102/64 95 / 2113 99.9 84 20 124/50 12/24 1600 98.8 80 20 110/60 93 Room Air Problems: 1. Sepsis secondary to urinary tract infection and bacteremia. 2. Type II myocardial infarction. 3. Cardiomyopathy with EF of 45% 4. Renal mass likely renal cell carcinoma. 5. Nonsustained supraventricular tachycardia. 6. Anemia. Plan: -I had a detailed conversation with the patient's son as well as the patient. There is no wish for any aggressive management. They would like a conservative approach. They are open to hospice care should the need arise. -She is afebrile. White cell count is trending downwards. Complete 14 days of antibiotic therapy. Transition patient ciprofloxacin at the time of discharge. -Continue current cardiac regimen of aspirin, statin, metoprolol. Hold off CEDRICK inhibitor or ARB therapy for now. Echocardiogram will be repeated as an outpatient with the cardiology service. -Her anemia is likely secondary to chronic disease. No evidence of gross bleeding at present. Check stool guaiac. No need for transfusion at present.
--- NOTE | 2017-12-25 14:30 | Patient Discharge Instructions ---
Discharge Instructions General Discharge Information You were seen/treated for: Sepsis Renal mass Watch for these problems: In case of low blood pressure, chest pain, palpitation, fever, chills please go to the nearest emergency room Special Instructions: Please follow-up with your primary care provider/urologist/damage appraiser #Please make an appointment with the oncologist Benito Collazo [phone]. Diet Recommended Diet: Heart Healthy Activity Activity Self Limited: Yes Acute Coronary Syndrome Inclusion Criteria At DC or during hospital stay patient has or had the following: ACS DIAGNOSIS No Discharge Core Measures Meds if any: Prescribed or Continued at Discharge Meds if any: NOT Prescribed or Continued at Discharge Congestive Heart Failure Inclusion Criteria At DC or during hospital stay patient has or had the following: CHF DIAGNOSIS No Discharge Core Measures Meds if any: Prescribed or Continued at Discharge Meds if any: NOT Prescribed or Continued at Discharge Cerebrovascular accident Inclusion Criteria At DC or during hospital stay patient has or had the following: CVA/TIA Diagnosis No Discharge Core Measures Meds if any: Prescribed or Continued at Discharge Meds if any: NOT Prescribed or Continued at Discharge Venous thromboembolism Inclusion Criteria VTE Diagnosis No VTE Type NONE VTE Confirmed by (Test) NONE Discharge Core Measures - Per Current guidelines, there needs to be overlap - treatment for the first 5 days of Warfarin therapy. - If discharged on Warfarin prior to 5 days of - overlap therapy, the patient will need to be - assessed for post discharge needs including - *Post discharge parental anticoagulation - *Warfarin and/or parental anticoagulation education - *Follow up date to check INR post discharge At least 5 days overlap therapy as Inpatient No Meds if any: Prescribed or Continued at Discharge Note: Overlap Therapy is Warfarin and Anticoagulant Meds if any: NOT Prescribed or Continued at Discharge
[2017-12-25 14:45] VITALS: BP 122/58
[2017-12-25 22:30] VITALS: BP 112/60
[2017-12-26 06:00] VITALS: BP 106/58
--- NOTE | 2017-12-26 08:08 | PN- Housestaff ---
Sammy Urban 12/26/17 0807: Subjective Follow-up For: UTI and sepsis Subjective: Patient seen lying comfortably in the bed. Patient reports that she made it to the commode for a bowel movement earlier. Denies chest pain, palpitations, dyspnea. Denies fever or chills, cough or shortness of breath. Overnight no acute events patient is no longer requiring conveyor monitor. Review of Systems Constitutional: Denies: chills, fever. Cardiovascular: Denies: chest pain, palpitations. Respiratory: Denies: cough, short of breath. Gastrointestinal: Denies: abdominal pain, nausea, vomiting. Objective Last 24 Hrs of Vital Signs/I&O Vital Signs Date Time Temp Pulse Resp B/P B/P Pulse O2 O2 Flow FiO2 Mean Ox Delivery Rate 12/26 06 98.7 86 22 106/58 95 12/25 2230 98.9 101 28 112/60 96 12/25 2107 92 112/60 12/25 1445 99.7 88 22 122/58 98 Room Air 12/25 0840 70 102/50 Intake & Output 12/26 1600 12/26 0800 12/26 0000 Intake Total 120 120 Output Total 600 Balance 120 -480 Intake, Oral 120 120 Number 1 Bowel Movements Output, Urine 600 Patient 72.32 kg Weight Physical Exam General Appearance: Alert, Cooperative, No Acute Distress Cardiovascular: Normal S1, Normal S2, No Murmurs Lungs: Clear to Auscultation Abdomen: Normal Bowel Sounds, Soft, No Tenderness Neurological: Normal Speech, Sensation Intact Current Medications: Current Medications Sig/Yuri Start time Last Medication Dose Route Stop Time Status Admin Acetaminophen 500 MG Q6P PRN 12/21 2300 AC PO Aspirin Buffered 81 MG DAILY 12/24 1130 AC 12/25 PO 0821 Atorvastatin Calcium 40 MG 1700 12/24 1700 AC 12/25 PO 1633 Ceftriaxone Sodium 1,000 MG DAILY 12/23 1243 DC 12/25 IV 0819 Ciprofloxacin 500 MG BID 12/26 09 AC PO 12/30 0859 Docusate Sodium 100 MG DAILY NEEDED PRN 12/24 0830 AC 12/25 PO 2112 Enoxaparin Sodium 40 MG DAILY 12/22 09 AC 12/25 SC 0819 Latanoprost 1 GTT AT BEDTIME 12/24 2100 AC 12/25 OPH 205 Magnesium Oxide 400 MG DAILY 12/23 09 AC 12/25 PO 0822 Metoprolol Tartrate 6.25 MG BID 12/24 2100 AC 12/25 PO 2107 Pantoprazole Sodium 40 MG DAILY 12/22 0430 AC 12/25 IV 0818 Phosphate 250 MG PC AND AT BEDTIME 12/24 0900 DC 12/25 PO 12/25 0901 0821 Polyethylene Glycol 17 GM DAILY PRN 12/24 0830 AC 12/25 PO 1745 Senna 187 MG DAILY PRN 12/24 0830 AC 12/25 PO 1745 Last 24 Hrs of Lab/Ovidio Results Last 24 Hrs of Labs/Mics: Laboratory Tests 12/26/17 0653: CBC w Diff Pending, WBC Pending, RBC Pending, Hgb Pending, Hct Pending, MCV Pending, MCH Pending, MCHC Pending, RDW Pending, Plt Count Pending, MPV Pending Assessment/Plan Assessment: 82-year-old female with sepsis secondary to UTI 1. UTI 2. Type II TN with EF 45% 3. Right renal mass Problem List: 1. Sepsis 2. UTI (urinary tract infection) 3. Elevated troponin 4. Renal cell carcinoma 5. Anemia 6. Renal mass, left Pain Ratin Pain Location: none Pain Goal: Remain pain free Pain Plan: tylenol Tomorrow's Labs & Rationales: Marivel Jamison MD 12/26/17 0934: Attending MD Review Statement Attending Statement Attending MD Statement: examined this patient, discuss w/resident/PA/COMPUTER HARDWARE ENGINEER, agreed w/resident/PA/COMPUTER HARDWARE ENGINEER, reviewed EMR data (avail), discussed with nursing, discussed with case mgmt, amended to note Attending Assessment/Plan: Patient seen and examined. Patient lying comfortably not in acute distress. No new complaints. Nursing staff reports that yesterday she had extreme difficulty mobilizing the patient. She reported having significant difficulty getting the patient off the commode to the chair. Patient had previously been cleared by the physical therapist yesterday morning for discharge home with home PT services. Nurse reports that she is unable to get the patient out of the bed today. It does not appear that patient can be safely discharged home today. She otherwise remains afebrile hemodynamically stable. No longer complains of rigors. Recommendations: -Continue antibiotic therapy with ciprofloxacin. Complete 14 day total of antibiotic therapy. -Physical therapy service to reevaluate the patient today for safe discharge planning. -Continue current cardiac regimen
[2017-12-26 08:34] LABS: ABSOLUTE BASOPHIL COUNT 0 /CUMM (0.0-0.2); ABSOLUTE EOSINOPHIL COUNT 0.2 /CUMM (0.0-0.7); ABSOLUTE GRANULOCYTE CT 10.6 /CUMM (1.4-6.5); ABSOLUTE LYMPH COUNT 2.2 /CUMM (1.2-3.4); ABSOLUTE MONOCYTE COUNT 1.4 /CUMM (0.10-0.60); BASOPHIL % 0.1 % (0.0-2.0); EOSINOPHIL % 1.1 % (0-5); HEMATOCRIT 25.5 % (37-47); MEAN CORPUSCULAR HGB CONC 32.8 G/DL (33.0-37.0); MEAN CORPUSCULAR VOLUME 79.4 FL (81.0-99.0); MEAN PLATELET VOLUME 10.1 FL (7.4-10.4); PLATELET COUNT 356 /CUMM (130-400); RBC DISTRIBUTION WIDTH 15.3 % (11.5-14.5); RED BLOOD CELL CT 3.21 /CUMM (4.20-5.40); WHITE BLOOD CELL COUNT 14.3 /CUMM (4.8-10.8)
[2017-12-26 13:31] VITALS: BP 117/73
[2017-12-26] MEDS ORDERED: METOPROLOL TART25 M1 PO ×2 (14:04→19:01)
[2017-12-26 19:54] VITALS: BP 120/58
[2017-12-27 06:20] VITALS: BP 124/62
--- NOTE | 2017-12-27 08:23 | PN- Housestaff ---
See Addendum Subjective Follow-up For: Fever and chills Complaints: no complaints Subjective: Patient was seen and examined at the bedside. Patient lying comfortably in bed. No acute events overnight. Denies fevers chills, cough or shortness of breath. No acute complaints, hoping to leave hospital soon. Review of Systems Constitutional: Reports: no symptoms. Cardiovascular: Denies: chest pain, palpitations. Respiratory: Denies: short of breath. Gastrointestinal: Denies: abdominal pain. Objective Last 24 Hrs of Vital Signs/I&O Vital Signs Date Time Temp Pulse Resp B/P B/P Pulse O2 O2 Flow FiO2 Mean Ox Delivery Rate 12/27 0835 98.4 80 18 124/62 07/08 0620 98.4 80 18 124/62 95 /07 2025 90 120/58 07/07 1954 98.5 90 18 120/58 95 /07 1331 98.5 87 16 117/73 97 Room Air Intake & Output 12/27 1600 08 0800 12/27 0000 Intake Total 60 Output Total 150 Balance -90 Intake, IV 10 Intake, Oral 50 Output, Urine 150 Patient 149 lb Weight Physical Exam General Appearance: Alert, Oriented X3, Cooperative, No Acute Distress Skin: No Rashes, No Breakdown Skin Temp/Moisture Exam: Warm/Dry Sepsis Skin Exam (color): Normal for Ethnicity HEENT: Atraumatic, PERRLA, EOMI Neck: Supple, No JVD, No thryomegaly Cardiovascular: Regular Rate, Normal S1, Normal S2, No Murmurs Lungs: Clear to Auscultation, Normal Air Movement Abdomen: Soft, No Tenderness Neurological: Normal Speech, Strength at 5/5 X4 Ext, Normal Tone Extremities: 1+ pitting edema, bilatera LE Assessment/Plan Assessment: 82-year-old female with sepsis secondary to UTI. Problem list: Plan: -patient choosing conservative management, opting against nephrectomy Problem List: 1. Sepsis 2. UTI (urinary tract infection) 3. Elevated troponin 4. Renal cell carcinoma Pain Ratin Pain Location: None Pain Goal: Remain pain free Pain Plan: None Tomorrow's Labs & Rationales: None Discharge Plan Stable for Discharge? Yes Anticipated Discharge (Day): tomorrow
[2017-12-27 09:17] LABS: ABSOLUTE BASOPHIL COUNT 0.1 /CUMM (0.0-0.2); ABSOLUTE EOSINOPHIL COUNT 0.2 /CUMM (0.0-0.7); ABSOLUTE GRANULOCYTE CT 10.4 /CUMM (1.4-6.5); ABSOLUTE LYMPH COUNT 2.1 /CUMM (1.2-3.4); ABSOLUTE MONOCYTE COUNT 1.3 /CUMM (0.10-0.60); BASOPHIL % 0.8 % (0.0-2.0); EOSINOPHIL % 1.3 % (0-5); GRANULOCYTE % 73.9 % (42.2-75.2); HEMATOCRIT 25.3 % (37-47); MEAN CORPUSCULAR HGB 25.7 PG (27.0-31.0); MEAN CORPUSCULAR HGB CONC 32.2 G/DL (33.0-37.0); MEAN CORPUSCULAR VOLUME 79.8 FL (81.0-99.0); MEAN PLATELET VOLUME 10.2 FL (7.4-10.4); PLATELET COUNT 369 /CUMM (130-400); RBC DISTRIBUTION WIDTH 14.8 % (11.5-14.5); RED BLOOD CELL CT 3.17 /CUMM (4.20-5.40)
[2017-12-27 14:19] VITALS: BP 120/58
[2017-12-27 20:52] VITALS: BP 120/62
[2017-12-28 06:50] VITALS: BP 114/74
--- NOTE | 2017-12-28 07:35 | PN- Housestaff ---
Torito Peguero 12/28/17 0734: Subjective Follow-up For: Fever/Chills secondary to Urinary Tract Infection leading to sepsis Subjective: Patient was seen and examined at the bedside. Patient lying comfortably in bed. No acute events overnight. Denies fevers chills, cough or shortness of breath. No acute complaints, hoping to leave hospital soon. Review of Systems Constitutional: Reports: see HPI. Objective Last 24 Hrs of Vital Signs/I&O Vital Signs Date Time Temp Pulse Resp B/P B/P Pulse O2 O2 Flow FiO2 Mean Ox Delivery Rate 12/28 1227 98.0 79 18 114/74 12/28 0904 79 114/74 12/28 0800 Room Air 12/28 0650 98.0 79 18 114/74 96 12/27 205 98.5 93 18 120/62 97 12/27 2051 93 120/62 12/27 1532 Room Air 1.0L 12/27 1419 98.2 92 18 120/58 97 Room Air Intake & Output 12/28 1600 12/28 0800 12/28 0000 Intake Total 240 310 Output Total Balance 240 310 Intake, IV 10 Intake, Oral 240 300 Patient 145 lb Weight Physical Exam General Appearance: Alert, Oriented X3, Cooperative, No Acute Distress Skin Temp/Moisture Exam: Warm/Dry Cardiovascular: Regular Rate, Normal S1, Normal S2 Lungs: Clear to Auscultation, Normal Air Movement Abdomen: Soft, No Tenderness Neurological: Sensation Intact Extremities: No Edema Current Medications: Current Medications Sig/Yuri Start time Last Medication Dose Route Stop Time Status Admin Acetaminophen 500 MG Q6P PRN 12/21 2300 AC PO Aspirin Buffered 81 MG DAILY 12/24 1130 AC 12/28 PO 09 Atorvastatin Calcium 40 MG 1700 12/24 1700 AC 12/27 PO 1643 Ciprofloxacin 500 MG BID 12/26 899 AC 12/28 PO 12/30 0859 0904 Docusate Sodium 100 MG DAILY NEEDED PRN 12/24 0830 AC 12/25 PO 211 Enoxaparin Sodium 40 MG DAILY 12/22 899 AC 12/28 SC 09 Latanoprost 1 GTT AT BEDTIME 12/24 2099 AC 12/27 OPH 2050 Magnesium Oxide 400 MG DAILY 12/23 899 AC 12/28 PO 09 Metoprolol Tartrate 6.25 MG BID 12/24 2099 AC 12/28 PO 0904 Pantoprazole Sodium 40 MG DAILY 12/22 0430 AC 12/28 IV 0905 Patient Medication 1 ED ONE ONE 12/28 1245 DC 12/28 Teaching ED 12/28 1246 1237 Polyethylene Glycol 17 GM DAILY PRN 12/24 0830 AC 12/25 PO 1745 Senna 187 MG DAILY PRN 12/24 0830 AC 12/25 PO 1745 Assessment/Plan Assessment: 82-year-old female with sepsis secondary to UTI, resolved Problem list: Plan: -Discharge today to STR -patient choosing conservative management, opting against nephrectomy Problem List: 1. UTI (urinary tract infection) Pain Ratin Pain Location: na Pain Goal: Remain pain free Pain Plan: na Tomorrow's Labs & Rationales: na Discharge Plan Discharge Disposition: STR/NH Stable for Discharge? Yes Anticipated Discharge (Day): today Robinson Lujan 12/28/17 1142: Attending MD Review Statement Attending Statement Attending MD Statement: examined this patient, discuss w/resident/PA/QUICK SKETCH ARTIST, agreed w/resident/PA/QUICK SKETCH ARTIST, discussed with family, reviewed EMR data (avail), discussed with nursing, discussed with case mgmt, reviewed images, amended to note Attending Assessment/Plan: Patient seen and examined. Resting comfortably not in acute distress. No issues overnight. No new complaints by nursing staff. She is afebrile. She is hemodynamically stable. Patient will be discharged on antibiotic therapy with PO ciprofloxacin for total of 14 days. follow-up with the urology service as an outpatient. Patient medically stable for discharge to rehab placement and consider palliative consult in future.
[2017-12-28 12:27] VITALS: BP 114/74
== END 2017-12-28 16:54 | DRG 871 ==
LOC: ERH 19:14 → CRI 21:00 → ERHI 21:00 → ENRESERV 12-22 00:32 → CRI 12-22 00:55 → ENTRNSPT 12-24 21:45 → EDTRNSPT 12-24 21:46 → EDTRNSPTSTS 12-24 21:46 → 1NO 12-24 22:02 → CMPTRNSPT 12-24 22:12 → 1NO 12-25 07:41 → 2NB 12-26 19:01 → ENPENDDIS 12-28 11:02 → 2NB 12-28 16:54
PROVIDERS: Emergency Medicine; Internal Medicine Endocrinology, Diabetes & Metabolism; Preventive Medicine Public Health & General Preventive Medicine; Student in an Organized Health Care Education/Training Program
DX: A41.51 Sepsis due to Escherichia coli [E. coli] (principal); I21.A1 Myocardial infarction type 2; N39.0 Urinary tract infection, site not specified; E87.1 Hypo-osmolality and hyponatremia; C64.2 Malignant neoplasm of left kidney, except renal pelvis; I47.1 Supraventricular tachycardia; K21.9 Gastro-esophageal reflux disease without esophagitis; R65.20 Severe sepsis without septic shock; E87.5 Hyperkalemia; D47.3 Essential (hemorrhagic) thrombocythemia; I95.9 Hypotension, unspecified; B96.20 Unspecified Escherichia coli [E. coli] as the cause of diseases classified elsewhere; I44.7 Left bundle-branch block, unspecified; R63.4 Abnormal weight loss; Z90.49 Acquired absence of other specified parts of digestive tract; Z66 Do not resuscitate; N28.89 Other specified disorders of kidney and ureter; D63.8 Anemia in other chronic diseases classified elsewhere
CPT/HCPCS: 1NSP; 2NBP; 84133; 84300; CCU; ERO; 36415; 36592; 71045; 74177; 81001; 82436; 82570; 87040; 87086; 93005; 93010; 93306; 96374; 96375; 97110-GO; 97116-GO; 97161-GP; 97530-GO; 99291; J0131; J0696; J0713; J1644; J1650; J2405; J2550; J3250; J3370; J7040; J7120